=== PATIENT | male | born 1945 | race Caucasian/White ===

== ENCOUNTER → 2017-06-21 | Outpatient (CLI) | payer MEDICARE, OTHER ==
[2017-06-21 11:25] LABS: ABSOLUTE EOSINOPHILS # (AUTO) 0.2 10^3/uL (0.0-0.6); ABSOLUTE LYMPHOCYTES (AUTO) 1.5 10^3/uL (0.5-4.7); ABSOLUTE MONOCYTES (AUTO) 0.6 10^3/uL (0.1-1.4); BASOPHILS % (AUTO) 0.5 % (0-2); EOSINOPHILS % (AUTO) 1.8 % (0-6); HEMATOCRIT 41.8 % (37.9-51.0); HEMOGLOBIN 14.8 g/dL (13.5-17.0); HGB HCT DIFFERENCE 2.6; LYMPHOCYTES % (AUTO) 16.6 % (13-45); MEAN CORPUSCULAR HEMOGLOBIN 31.4 pg (27.0-33.4); MEAN CORPUSCULAR HGB CONC 35.3 g/dL (32.0-36.0); MEAN CORPUSCULAR VOLUME 89 fl (80-97); MONOCYTES % (AUTO) 6.1 % (3-13); RED CELL DISTRIBUTION WIDTH 13.5 % (11.5-14.0); WHITE BLOOD COUNT 9.3 10^3/uL (4.0-10.5)
[2017-06-21 11:47] LABS: ALANINE AMINOTRANSFERASE 23 U/L (21-72); ALBUMIN 4.5 g/dL (3.5-5.0); ALKALINE PHOSPHATASE 94 U/L (38-126); ANION GAP 12 (5-19); ASPARTATE AMINO TRANSFERASE 17 U/L (17-59); BILIRUBIN,DIRECT 0.4 mg/dL (0.0-0.4); BILIRUBIN,TOTAL 0.9 mg/dL (0.2-1.3); BLOOD UREA NITROGEN 21 mg/dL (7-20); CALCIUM 9.8 mg/dL (8.4-10.2); CARBON DIOXIDE 23 mmol/L (22-30); CHLORIDE 109 mmol/L (98-107); CHOLESTEROL 159.12 mg/dL (0-200); CREATININE RESULT 1.13 mg/dL (0.52-1.25); Direct HDL 45 mg/dL (>40); GLUCOSE 98 mg/dL (75-110); POTASSIUM 4.2 mmol/L (3.6-5.0); SODIUM 144.1 mmol/L (137-145); TOTAL PROTEIN 7.4 g/dL (6.3-8.2); TRIGLYCERIDES 186 mg/dL (<150)
[2017-06-21 11:58] LABS: DIRECT LDL 74 mg/dL (<100)
[2017-06-21 12:02] LABS: VLDL CHOLESTEROL 37.2 mg/dL (10-31)
== END ==
LOC: OD 10:15
PROVIDERS: ATTEND Psychiatry & Neurology Psychiatry
DX: F20.89 Other schizophrenia (principal); F33.1 Major depressive disorder, recurrent, moderate; Z68.32 Body mass index [BMI] 32.0-32.9, adult; Z79.899 Other long term (current) drug therapy
CPT/HCPCS: 36415; 80053; 80061; 84443; 85025

== ENCOUNTER 2018-08-06 11:14 | Emergency (ER) | payer MEDICARE ==
[2018-08-06] MEDS ORDERED: NORMAL SALINE 1000 ML 1,000 ML IV ONE (11:37)
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
[2018-08-06 12:02] LABS: ABSOLUTE BASOPHILS # (AUTO) 0.1 10^3/uL (0.0-0.2); ABSOLUTE EOSINOPHILS # (AUTO) 0.2 10^3/uL (0.0-0.6); ABSOLUTE LYMPHOCYTES (AUTO) 1.7 10^3/uL (0.5-4.7); ABSOLUTE MONOCYTES (AUTO) 1.1 10^3/uL (0.1-1.4); ABSOLUTE NEUT (AUTO) 10.1 10^3/uL (1.7-8.2); BASOPHILS % (AUTO) 0.6 % (0-2); EOSINOPHILS % (AUTO) 1.5 % (0-6); HEMATOCRIT 45.9 % (37.9-51.0); HEMOGLOBIN 16.2 g/dL (13.5-17.0); LYMPHOCYTES % (AUTO) 12.6 % (13-45); MEAN CORPUSCULAR HEMOGLOBIN 30.9 pg (27.0-33.4); MEAN CORPUSCULAR HGB CONC 35.3 g/dL (32.0-36.0); MEAN CORPUSCULAR VOLUME 88 fl (80-97); MONOCYTES % (AUTO) 8.2 % (3-13); PLATELET COUNT 200 10^3/uL (150-450); RED BLOOD COUNT 5.24 10^6/uL (4.35-5.55); RED CELL DISTRIBUTION WIDTH 13.5 % (11.5-14.0); SEGMENTED NEUTROPHILS % (AUTO) 77.1 % (42-78); TOTAL CELLS COUNTED % (AUTO) 100 %; WHITE BLOOD COUNT 13.1 10^3/uL (4.0-10.5)
--- NOTE | 2018-08-06 12:11 | RADIOLOGY REPORT (SQ) ---
EXAM DESCRIPTION: CHEST SINGLE VIEW COMPLETED DATE/TIME: 08/06/2018 12:00 pm REASON FOR STUDY: cough COMPARISON: None. EXAM PARAMETERS: NUMBER OF VIEWS: One view. TECHNIQUE: Single frontal radiographic view of the chest acquired. RADIATION DOSE: NA LIMITATIONS: None. FINDINGS: LUNGS AND PLEURA: No opacities, masses or pneumothorax. No pleural effusion. MEDIASTINUM AND HILAR STRUCTURES: No masses. Contour normal. HEART AND VASCULAR STRUCTURES: Heart normal in size. Normal vasculature. BONES: No acute findings. HARDWARE: None in the chest. OTHER: No other significant finding. IMPRESSION: NO ACUTE RADIOGRAPHIC FINDING IN THE CHEST. TECHNICAL DOCUMENTATION: JOB ID: [id number] [employer]- All Rights Reserved Reading location - IP/workstation name: [email or web address]
[2018-08-06 12:25] LABS: ANION GAP 15 (5-19); BLOOD UREA NITROGEN 23 mg/dL (7-20); CALCIUM 9.9 mg/dL (8.4-10.2); CARBON DIOXIDE 24 mmol/L (22-30); CHLORIDE 95 mmol/L (98-107); GLUCOSE 122 mg/dL (75-110); POTASSIUM 3.9 mmol/L (3.6-5.0); SODIUM 133.7 mmol/L (137-145)
[2018-08-06 14:56] LABS: APPEARANCE,URINE CLEAR; BILIRUBIN,URINE NEGATIVE (NEGATIVE); COLOR,URINE YELLOW; GLUCOSE, URINE NEGATIVE (NEGATIVE); KETONES,URINE NEGATIVE (NEGATIVE); LEUKOCYTE ESTERASE,URINE NEGATIVE (NEGATIVE); NITRITE,URINE NEGATIVE (NEGATIVE); PROTEIN,URINE NEGATIVE (NEGATIVE); URINE SPECIFIC GRAVITY 1.011; UROBILINOGEN,URINE NEGATIVE mg/dL (<2.0)
[2018-08-06 15:28] VITALS: BP 119/81
--- NOTE | 2018-08-06 17:03 | EKG REPORT ---
SEVERITY:- BORDERLINE ECG - SINUS RHYTHM PROBABLE LEFT ATRIAL ABNORMALITY : Confirmed by: Yola Dutton MD 06-Aug-2018 17:01:48
== END 2018-08-06 16:12 | disposition home or self-care (01) ==
LOC: ER 11:14
DX: E86.0 Dehydration (principal); N17.9 Acute kidney failure, unspecified; R31.21 Asymptomatic microscopic hematuria; R19.7 Diarrhea, unspecified; R53.1 Weakness; R53.83 Other fatigue; I10 Essential (primary) hypertension; Z88.8 Allergy status to other drugs, medicaments and biological substances
CPT/HCPCS: 36415; 71045; 80048; 81001; 84484; 85025; 93005; 93010; 96360; 99285

== ENCOUNTER 2018-08-29 06:20 | Emergency (ER) | payer MEDICARE ==
[2018-08-29] MEDS ORDERED: RINGERS SOLUTION,LACTATED 1,000 ML IV ONE (06:36)
--- NOTE | 2018-08-29 06:43 | ER Document Report ---
ED General - General Chief Complaint: Dizziness Stated Complaint: DIZZINESS Time Seen by Provider: 08/29/18 06:22 TRAVEL OUTSIDE OF THE [place] IN LAST 30 DAYS: No COUNTRY TRAVELED TO/FROM: [facility] Patient complains to provider of: dizziness Onset: Other - 73-year-old man that presents for evaluation of dizziness, he has had a similar episode like this in the past 3 weeks prior he is uncertain what the cause was at that time, his tenant who is here with him notes that he believes they were treated for dehydration at that time but that Mr. Rodriguez does have an element of dementia so he is uncertain. He noted that he was unsteady on his feet this morning, and he has been feeling this way for the last 2 days particularly when he gets up out of bed. Nothing is seem to make his symptoms better, change in position seems to make them worse. He denies any history of heart attacks in the past, arrhythmia, stroke, recent illnesses or infections. He denies palpitations, chest pain, shortness of breath, abdominal pain, rashes, diarrhea, constipation, dysuria. - Related Data Allergies/Adverse Reactions: haloperidol [From Haldol] Allergy (Verified 08/29/18 07:05) haloperidol lactate [From Haldol] Allergy (Verified 08/29/18 07:05) Past Medical History - General Information source: Patient, Relative Cannot obtain history due to: Dementia - Social History Smoking Status: Former Smoker Family History: Reviewed & Not Pertinent Renal/ Medical History: Denies: Hx Peritoneal Dialysis - Immunizations Hx Diphtheria, Pertussis, Tetanus Vaccination: No Review of Systems - Review of Systems -: Yes All other systems reviewed and negative Physical Exam - Vital signs Vitals: Pulse Resp BP Pulse Ox 74 18 96/68 L 94 08/29/18 06:20 08/29/18 06:20 08/29/18 06:20 08/29/18 06:20 Interpretation: Normal - General General appearance: Appears well In distress: None - HEENT Head: Normocephalic Eyes: Normal Conjunctiva: Normal Cornea: Normal Extraocular movements intact: Yes Eyelashes: Normal Pupils: PERRL - Respiratory Respiratory status: No respiratory distress Chest status: Nontender Breath sounds: Normal Chest palpation: Normal - Cardiovascular Rhythm: Regular Heart sounds: Normal auscultation Murmur: No - Abdominal Inspection: Normal Distension: No distension Tenderness: Nontender - Back Back: Normal - Extremities General upper extremity: Normal inspection, Nontender, Normal ROM, Normal strength General lower extremity: Normal inspection, Nontender, Normal ROM, Normal strength - Neurological Neuro grossly intact: Yes Cognition: Normal Orientation: AAOx4 [place] Coma Scale Eye Opening: Spontaneous [place] Coma Scale Verbal: Oriented [place] Coma Scale Motor: Obeys Commands [place] Coma Scale Total: 15 Speech: Normal Cranial nerves: Normal Motor strength normal: LUE, RUE, LLE, RLE - Psychological Associated symptoms: Normal affect Course - Re-evaluation Re-evalutation: 08/29/18 06:48 There is a 73-year-old man who presents with dizziness. It does sound postural in nature, previously was treated for what sounds like likely dehydration. His lips are cracked though he is not tachycardic at this time his blood pressure is somewhat lower than expected. He has low level dementia as well as a history of some mental illness and as such his recall is somewhat limited. Will initiate broad workup including labs, EKG, cardiac monitoring, CT of the head. Will administer liter bolus, will plan for reassessment. 08/29/18 08:[address] is unremarkable chest x-ray is unchanged. EKG is essentially the same with a modestly longer QTC. Patient's chemistry does demonstrate what appears to be a recurrent acute kidney injury. He does demonstrate some symptoms suggestive of a prerenal azotemia with an elevated BUN and creatinine. Patient is likely dehydrated. Will plan for a second troponin as his initial is negative and reassessment. 08/29/18 12:34 Second troponin is negative, patient's in-home friend Mohamud Sanchez at phone number [phone] should serve as their point of contacted to help arrange for home health visit. Have placed a consult to social work for home health visit. Believe these people would benefit from assistance at home as it is likely they are incorrectly taking her medicines. Patient is well-appearing at this time is remained neurologically intact throughout his time in the emergency department without any events on monitor. Will plan for him to be discharged with return precautions with his as well as family friend. - Vital Signs Vital signs: Temp Pulse Resp BP Pulse Ox 97.9 F 74 14 119/83 92 08/29/18 06:35 08/29/18 06:20 08/29/18 12:30 08/29/18 12:30 08/29/18 12:30 - Laboratory Result Diagrams: 08/29/18 06:27 08/29/18 06:27 Laboratory results interpreted by me: 08/29/18 08/29/18 08/29/18 06:27 06:27 10:50 WBC 13.5 H Abs Neuts (Manual) 9.5 H Sodium 131.9 L Potassium 3.3 L Chloride 95 L Carbon Dioxide 20 L BUN 32 H Creatinine 1.60 H Est GFR ( Amer) 52 L Est GFR (Non-Af Amer) 43 L Glucose 130 H Urine Blood SMALL H Ur Leukocyte Esterase SMALL H - EKG Interpretation by Me EKG shows normal: Sinus rhythm - Sinus rhythm, normal axis, QTC modestly lengthened now greater than 500 in comparison to 08/06/2018 Discharge - Discharge Clinical Impression: Dizziness, Weakness, Confusion Dementia Qualifiers: Dementia type: unspecified type Dementia behavioral disturbance: without behavioral disturbance Qualified Code(s): F03.90 - Unspecified dementia without behavioral disturbance Condition: Good Disposition: HOME, SELF-CARE Instructions: Dizziness ([facility]) Additional Instructions: You were seen today in the emergency department for your dizziness. You had an evaluation including blood tests, a CAT scan of your head, and x-ray of your chest. Take your time when you are getting up. Make sure you are drinking plenty of water over the next few days. You should get a call in the next 2-3 days to set up a home health visit. If you do not receive this call call the emergency department and asked to speak to the social media marketing manager. Referrals: KEYLA WHITE MD [Primary Care Provider] - Follow up as needed
[2018-08-29 06:50] LABS: HEMATOCRIT 46.7 % (37.9-51.0); HEMOGLOBIN 16.7 g/dL (13.5-17.0); MEAN CORPUSCULAR HEMOGLOBIN 30.8 pg (27.0-33.4); MEAN CORPUSCULAR HGB CONC 35.7 g/dL (32.0-36.0); MEAN CORPUSCULAR VOLUME 86 fl (80-97); PLATELET COUNT 302 10^3/uL (150-450); RED BLOOD COUNT 5.41 10^6/uL (4.35-5.55); RED CELL DISTRIBUTION WIDTH 13.8 % (11.5-14.0); WHITE BLOOD COUNT 13.5 10^3/uL (4.0-10.5)
[2018-08-29 06:59] LABS: ALANINE AMINOTRANSFERASE 45 U/L (21-72); ALBUMIN 4.3 g/dL (3.5-5.0); ALKALINE PHOSPHATASE 91 U/L (38-126); ANION GAP 17 (5-19); ASPARTATE AMINO TRANSFERASE 29 U/L (17-59); BILIRUBIN,DIRECT 0.3 mg/dL (0.0-0.4); BILIRUBIN,TOTAL 1.1 mg/dL (0.2-1.3); BLOOD UREA NITROGEN 32 mg/dL (7-20); CARBON DIOXIDE 20 mmol/L (22-30); CHLORIDE 95 mmol/L (98-107); CREATINE KINASE 64 U/L (55-170); GLUCOSE 130 mg/dL (75-110); POTASSIUM 3.3 mmol/L (3.6-5.0); SODIUM 131.9 mmol/L (137-145); TOTAL PROTEIN 7.6 g/dL (6.3-8.2)
[2018-08-29 07:11] LABS: CREATINE KINASE MB 1.03 ng/mL (<4.55)
[2018-08-29 07:14] LABS: ABSOLUTE MONOCYTES # (MANUAL) 0.9 10^3/uL (0.1-1.4); ABSOLUTE NEUTROPHILS# (MANUAL) 9.5 10^3/uL (1.7-8.2); BASOPHILS % (MANUAL) 0 % (0-2); EOSINOPHILS % (MANUAL) 1 % (0-6); LYMPHOCYTES % (MANUAL) 22 % (13-45); MONOCYTES % (MANUAL) 7 % (3-13); SEGMENTED NEUTROPHILS % (MAN) 70 % (42-78); TOTAL CELLS COUNTED 100; TROPONIN I < 0.012 ng/mL
[2018-08-29 07:15] LABS: PLATELET COMMENT ADEQUATE; TOXIC GRANULATION SLIGHT
--- NOTE | 2018-08-29 07:30 | RADIOLOGY REPORT (SQ) ---
EXAM DESCRIPTION: CT HEAD WITHOUT COMPLETED DATE/TIME: 08/29/2018 7:20 am REASON FOR STUDY: dizziness x 3 days COMPARISON: None. TECHNIQUE: Axial images acquired through the brain without intravenous contrast. Images reviewed wi th bone, brain and subdural windows. Additional sagittal and coronal reconstructions were generated. Images stored on PACS. All CT scanners at this facility use dose modulation, iterative reconstruction, and/or weight based d osing when appropriate to reduce radiation dose to as low as reasonably achievable (ALARA). [facility]: Dose Right [facility]: CareDose [facility]: Dose Right [facility]: Teradose 4D [facility]: Smart [employer] RADIATION DOSE: CT Rad equipment meets quality standard of care and radiation dose reduction techniq ues were employed. CTDIvol: 53.2 - 55.2 mGy. DLP: 2290 mGy-cm. mGy. LIMITATIONS: Patient scanned twice, motion artifact FINDINGS: VENTRICLES: Normal size and contour. CEREBRUM: No masses. No hemorrhage. No midline shift. No evidence for acute infarction. Normal gra y/white matter differentiation. No areas of low density in the white matter. CEREBELLUM: No masses. No hemorrhage. No alteration of density. No evidence for acute infarction. EXTRAAXIAL SPACES: No fluid collections. No masses. ORBITS AND GLOBE: No intra- or extraconal masses. Normal contour of globe without masses. CALVARIUM: No fracture. PARANASAL SINUSES: No fluid or mucosal thickening. SOFT TISSUES: No mass or hematoma. OTHER: No other significant finding. IMPRESSION: NORMAL BRAIN CT WITHOUT CONTRAST. EVIDENCE OF ACUTE STROKE: NO. COMMENT: Quality ID # 436: Final reports with documentation of one or more dose reduction techniques (e.g., Automated exposure control, adjustment of the mA and/or kV according to patient size, use of iterative reconstruction technique) TECHNICAL DOCUMENTATION: JOB ID: [id number] [employer]- All Rights Reserved Reading location - IP/workstation name: [email or web address]
--- NOTE | 2018-08-29 07:39 | RADIOLOGY REPORT (SQ) ---
EXAM DESCRIPTION: CHEST SINGLE VIEW COMPLETED DATE/TIME: 08/29/2018 7:30 am REASON FOR STUDY: lightheadedness COMPARISON: AP chest 08/06/2018, 08/28/2011 EXAM PARAMETERS: NUMBER OF VIEWS: One view. TECHNIQUE: Single frontal radiographic view of the chest acquired. RADIATION DOSE: NA LIMITATIONS: None. FINDINGS: LUNGS AND PLEURA: No opacities, masses or pneumothorax. No pleural effusion. MEDIASTINUM AND HILAR STRUCTURES: No masses. Contour normal. HEART AND VASCULAR STRUCTURES: Heart normal in size. Normal vasculature. BONES: No acute findings. HARDWARE: None in the chest. OTHER: No other significant finding. IMPRESSION: NO ACUTE RADIOGRAPHIC FINDING IN THE CHEST. TECHNICAL DOCUMENTATION: JOB ID: [id number] [employer]- All Rights Reserved Reading location - IP/workstation name: [email or web address]
--- NOTE | 2018-08-29 07:49 | EKG REPORT ---
SEVERITY:- ABNORMAL ECG - SINUS RHYTHM BORDERLINE INFERIOR Q WAVES PROLONGED QT INTERVAL : Confirmed by: Hawk Puente MD 29-Aug-2018 07:48:42
[2018-08-29] MEDS ORDERED: POTASSIUM CHLORIDE 20 MEQ/15 ML UDCUP PO ONE (08:41)
[2018-08-29 11:11] LABS: APPEARANCE,URINE SLIGHTLY-CLOUDY; BILIRUBIN,URINE NEGATIVE (NEGATIVE); COLOR,URINE YELLOW; GLUCOSE, URINE NEGATIVE (NEGATIVE); KETONES,URINE NEGATIVE (NEGATIVE); LEUKOCYTE ESTERASE,URINE SMALL (NEGATIVE); NITRITE,URINE NEGATIVE (NEGATIVE); PROTEIN,URINE NEGATIVE (NEGATIVE); URINE SPECIFIC GRAVITY 1.011; UROBILINOGEN,URINE NEGATIVE mg/dL (<2.0)
[2018-08-29 11:27] LABS: URINE AMPHETAMINES SCREEN NEGATIVE; URINE BARBITURATES SCREEN NEGATIVE; URINE BENZODIAZEPINES SCREEN NEGATIVE; URINE COCAINE SCREEN NEGATIVE; URINE MARIJUANA (THC) SCREEN NEGATIVE; URINE METHADONE SCREEN NEGATIVE; URINE PHENCYCLIDINE SCREEN NEGATIVE
[2018-08-29 12:37] VITALS: BP 119/83
== END 2018-08-29 12:47 | disposition home or self-care (01) ==
LOC: ER 06:20
DX: R42 Dizziness and giddiness (principal); R53.1 Weakness; R41.0 Disorientation, unspecified; F03.90 Unspecified dementia, unspecified severity, without behavioral disturbance, psychotic disturbance, mood disturbance, and anxiety
CPT/HCPCS: 93005; 99285; 96360; 36415; 82553; 82550; 83735; 85025; 80053; 81001; 84484; 80307; 71045; 70450; 93010; A9270; J7120

== ENCOUNTER → 2018-09-19 | Outpatient (CLI) | payer MEDICARE ==
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
--- NOTE | 2018-09-19 18:46 | RADIOLOGY REPORT (SQ) ---
EXAM DESCRIPTION: CT ABD/PELVIS NO ORAL OR IV COMPLETED DATE/TIME: 09/19/2018 11:02 am REASON FOR STUDY: UTI,ABNORMAL WEIGHT LOSS N39.0 URINARY TRACT INFECTION, SITE NOT SPECIFIED R63.4 ABNORMAL WEIGHT LOSS N18.2 CHRONIC KIDNEY DISEASE, STAGE 2 (MILD) COMPARISON: None. TECHNIQUE: CT scan of the abdomen and pelvis performed without intravenous or oral contrast. Images reviewed with lung, soft tissue, and bone windows. Reconstructed coronal and sagittal MPR images revi ewed. All images stored on PACS. All CT scanners at this facility use dose modulation, iterative reconstruction, and/or weight based d osing when appropriate to reduce radiation dose to as low as reasonably achievable (ALARA). [facility]: Dose Right [facility]: CareDose [facility]: Dose Right [facility]: Teradose 4D [facility]: Smart e27 RADIATION DOSE: CT Rad equipment meets quality standard of care and radiation dose reduction techniq ues were employed. CTDIvol: 15.4 mGy. DLP: 863 mGy-cm.mGy. LIMITATIONS: None. FINDINGS: LOWER CHEST: No significant findings. No nodules or infiltrates. NON-CONTRASTED LIVER, SPLEEN, ADRENALS: Evaluation limited by lack of IV contrast. No identified sign ificant masses. PANCREAS: No masses. No peripancreatic inflammatory changes. GALLBLADDER: 2.5 cm stone in the gallbladder without CT signs of acute cholecystitis. RIGHT KIDNEY AND URETER: No suspicious masses. Assessment limited by lack of IV contrast. No signif icant calcifications. No hydronephrosis or hydroureter. LEFT KIDNEY AND URETER: No suspicious masses. Assessment limited by lack of IV contrast. 12 cm left lower pole cortical cyst. 2 mm left upper pole intrarenal nonobstructive stone coronal image 70. N o hydronephrosis or hydroureter. AORTA AND RETROPERITONEUM: No aneurysm. No retroperitoneal masses or adenopathy. BOWEL AND PERITONEAL CAVITY: No obvious masses or inflammatory changes. No free fluid. No free intra peritoneal air. No bowel obstruction. 4 cm periampullary duodenum diverticulum. Small hiatal herni a. APPENDIX: Normal. PELVIS, BLADDER, AND ABDOMINAL WALL:No abnormal masses. No free fluid. Bladder normal. Fat containin g bilateral inguinal hernias. BONES: No significant findings. OTHER: No other significant finding. IMPRESSION: NO SIGNIFICANT OR ACUTE PROCESS IN THE ABDOMEN OR PELVIS. COMMENT: Quality ID # [id number]: Final reports with documentation of one or more dose reduction techniques (e.g., Automated exposure control, adjustment of the mA and/or kV according to patient size, use of iterative reconstruction technique) TECHNICAL DOCUMENTATION: JOB ID: [id number] [employer]- All Rights Reserved Reading location - IP/workstation name: [email or web address]
== END ==
LOC: RAD 10:47
PROVIDERS: ATTEND Family Medicine
DX: N39.0 Urinary tract infection, site not specified (principal); R63.4 Abnormal weight loss; N18.2 Chronic kidney disease, stage 2 (mild); F03.90 Unspecified dementia, unspecified severity, without behavioral disturbance, psychotic disturbance, mood disturbance, and anxiety
CPT/HCPCS: 70551; 74176

== ENCOUNTER 2019-05-18 14:16 | Inpatient (IN) | payer MEDICARE ==
[2019-05-18] MEDS ORDERED: NORMAL SALINE 1000 ML 1,000 ML IV ONE ×3 (14:36→18:44)
[2019-05-18 14:59] LABS: VENOUS BLOOD BASE EXCESS 7.1 mmol/L; VENOUS BLOOD HCO3 29.9 mmol/L (20-32); VENOUS BLOOD PCO2 36.5 mmHg (35-63); VENOUS BLOOD PH 7.53 (7.30-7.42)
--- NOTE | 2019-05-18 14:59 | ER Document Report ---
ED General - General Chief Complaint: Fainting Stated Complaint: WEAKNESS Time Seen by Provider: 05/18/19 14:25 Mode of Arrival: Ambulatory Information source: Patient, Relative, Emergency Med Personnel, [facility] Records Notes: 73-year-old male with hypertension, hyperlipidemia, schizophrenia presents via EMS after a near syncopal episode at [facility]. Per the patient's the patient fell 3 times today. She cannot tell me whether he struck his head but states that he did not lose consciousness. Patient currently only complaining of weakness and when asked where he cannot specify. He denies any headache, visual changes, nausea, vomiting, chest pain, shortness of breath, abdominal pain, r ecent illness. states that the patient has been complaining of weakness and has had decreased appetite over the last 3 days. Patient has not eaten anything today. TRAVEL OUTSIDE OF THE [place] IN LAST 30 DAYS: No COUNTRY TRAVELED TO/FROM: [facility] [place] [employer] Onset: Just prior to arrival Onset/Duration: Sudden Quality of pain: No pain Severity: None Pain Level: Denies Associated symptoms: Sweating, Weakness. denies: Chest pain, Productive cough, Diarrhea, Fever, Headache, Nausea, Vomiting, Shortness of breath Exacerbated by: Denies Relieved by: Denies Similar symptoms previously: No Recently seen / treated by doctor: No - Related Data Allergies/Adverse Reactions: haloperidol [From Haldol] Allergy (Verified 09/10/18 17:55) haloperidol lactate [From Haldol] Allergy (Verified 09/10/18 17:55) Past Medical History - General Information source: Patient, Relative, Emergency Med Personnel - Social History Smoking Status: Never Smoker Chew tobacco use (# tins/day): No Frequency of alcohol use: None Drug Abuse: None Lives with: Spouse/Significant other Family History: Reviewed & Not Pertinent Patient has suicidal ideation: No Patient has homicidal ideation: No - Past Medical History Cardiac Medical History: Reports: Hx Hypercholesterolemia, Hx Hypertension Renal/ Medical History: Denies: Hx Peritoneal Dialysis - Immunizations Hx Diphtheria, Pertussis, Tetanus Vaccination: No Review of Systems - Review of Systems Notes: REVIEW OF SYSTEMS: CONSTITUTIONAL : Denies fever, chills, or sweats. Denies recent illness. Denies weight loss, recent hospitalizations. EENT: Denies visual changes, eye pain. Denies sore throat, oral lesions, difficulty swallowing. CARDIOVASCULAR: Denies chest pain. Denies palpitations. Denies lower extremity edema. RESPIRATORY: Denies cough. Denies shortness of breath, wheezing. GASTROINTESTINAL: Denies abdominal pain or distention. Denies nausea, vomiting, or diarrhea. Denies blood in vomitus, stools, or per rectum. Denies black, tarry stools. Denies constipation. GENITOURINARY: Denies difficulty urinating, painful urination, frequency, blood in urine, testicular pain or penile discharge. MUSCULOSKELETAL: Denies back or neck pain or stiffness. Denies joint pain or swelling. SKIN: Denies rash, lesions or sores. HEMATOLOGIC : Denies easy bruising or bleeding. LYMPHATIC: Denies swollen glands. NEUROLOGICAL: Denies confusion or altered mental status. Denies loss of consciousness. Denies dizziness or lightheadedness. Denies headache. Denies paralysis. Denies problems difficulty with ambulation, slurred speech. Denies sensory loss, numbness, or tingling. Denies seizures. PSYCHIATRIC: Denies anxiety or stress. Denies depression, suicidal ideation, or Physical Exam - Vital signs Vitals: Resp Pulse Ox 19 98 05/18/19 14:29 05/18/19 14:29 - Notes Notes: PHYSICAL EXAMINATION: GENERAL: Well-appearing, well-nourished and in no acute distress. HEAD: Atraumatic, normocephalic. EYES: Pupils equal round and reactive to light, extraocular movements intact, sclera anicteric, conjunctiva are normal. ENT: Nares patent, oropharynx clear without exudates. Moist mucous membranes. NECK: Normal range of motion, supple without lymphadenopathy LUNGS: Visibly dyspneic breath sounds clear to auscultation bilaterally and equal. No wheezes rales or rhonchi. HEART: Regular rate and rhythm without murmurs ABDOMEN: Soft, nontender, nondistended abdomen. No guarding, no rebound. No masses appreciated. Musculoskeletal: Normal range of motion, no pitting or edema. No cyanosis. NEUROLOGICAL: Cranial nerves grossly intact. Slowed speech, normal gait. Normal sensory, motor exams. NIH 0 PSYCH: Flat affect SKIN: Warm, Dry, normal turgor, no rashes or lesions noted. Course - Re-evaluation Re-evalutation: 05/18/19 21:20 Laboratory 05/18/19 05/18/19 05/18/19 14:41 14:41 14:41 WBC 17.6 H RBC 5.35 Hgb 16.4 Hct 46.7 MCV 87 MCH 30.7 MCHC 35.2 RDW 12.9 Plt Count 307 Seg Neutrophils % 87.0 H Lymphocytes % 5.8 L Monocytes % 6.7 Eosinophils % 0.2 Basophils % 0.3 Absolute Neutrophils 15.3 H Absolute Lymphocytes 1.0 Absolute Monocytes 1.2 Absolute Eosinophils 0.0 Absolute Basophils 0.1 PT 13.7 INR 1.05 D-Dimer 1.02 H VBG pH VBG pCO2 VBG HCO3 VBG Base Excess Sodium 124.7 L Potassium 3.3 L Chloride 81 L Carbon Dioxide 29 Anion Gap 15 BUN 47 H Creatinine 1.73 H Est GFR ( Amer) 47 L Est GFR (Non-Af Amer) 39 L Glucose 142 H Lactic Acid Calcium 9.5 Total Bilirubin 1.0 Direct Bilirubin 0.4 Neonat Total Bilirubin Not Reportable Neonat Direct Bilirubin Not Reportable Neonat Indirect Bili Not Reportable AST 24 ALT 27 Alkaline Phosphatase 90 Creatine Kinase 36 L CK-MB (CK-2) Troponin I NT-Pro-B Natriuret Pep Total Protein 7.0 Albumin 4.0 Urine Color Urine Appearance Urine pH Ur Specific [place] Urine Protein Urine Glucose (UA) Urine Ketones Urine Blood Urine Nitrite Urine Bilirubin Urine Urobilinogen Ur Leukocyte Esterase Urine WBC (Auto) Urine RBC (Auto) U Hyaline Cast (Auto) Urine Bacteria (Auto) Urine Mucus (Auto) Urine Ascorbic Acid Urine Opiates Screen Urine Methadone Screen Ur Barbiturates Screen Ur Phencyclidine Scrn Ur Amphetamines Screen U Benzodiazepines Scrn Urine Cocaine Screen U Marijuana (THC) Screen 05/18/19 05/18/19 05/18/19 14:41 14:41 14:56 WBC RBC Hgb Hct MCV MCH MCHC RDW Plt Count Seg Neutrophils % Lymphocytes % Monocytes % Eosinophils % Basophils % Absolute Neutrophils Absolute Lymphocytes Absolute Monocytes Absolute Eosinophils Absolute Basophils PT INR D-Dimer VBG pH 7.53 H VBG pCO2 36.5 VBG HCO3 29.9 VBG Base Excess 7.1 Sodium Potassium Chloride Carbon Dioxide Anion Gap BUN Creatinine Est GFR ( Amer) Est GFR (Non-Af Amer) Glucose Lactic Acid 3.5 H Calcium Total Bilirubin Direct Bilirubin Neonat Total Bilirubin Neonat Direct Bilirubin Neonat Indirect Bili AST ALT Alkaline Phosphatase Creatine Kinase CK-MB (CK-2) 0.22 Troponin I < 0.012 NT-Pro-B Natriuret Pep 328 Total Protein Albumin Urine Color Urine Appearance Urine pH Ur Specific [place] Urine Protein Urine Glucose (UA) Urine Ketones Urine Blood Urine Nitrite Urine Bilirubin Urine Urobilinogen Ur Leukocyte Esterase Urine WBC (Auto) Urine RBC (Auto) U Hyaline Cast (Auto) Urine Bacteria (Auto) Urine Mucus (Auto) Urine Ascorbic Acid Urine Opiates Screen Urine Methadone Screen Ur Barbiturates Screen Ur Phencyclidine Scrn Ur Amphetamines Screen U Benzodiazepines Scrn Urine Cocaine Screen U Marijuana (THC) Screen 05/18/19 05/18/19 16:57 16:57 WBC RBC Hgb Hct MCV MCH MCHC RDW Plt Count Seg Neutrophils % Lymphocytes % Monocytes % Eosinophils % Basophils % Absolute Neutrophils Absolute Lymphocytes Absolute Monocytes Absolute Eosinophils Absolute Basophils PT INR D-Dimer VBG pH VBG pCO2 VBG HCO3 VBG Base Excess Sodium Potassium Chloride Carbon Dioxide Anion Gap BUN Creatinine Est GFR ( Amer) Est GFR (Non-Af Amer) Glucose Lactic Acid Calcium Total Bilirubin Direct Bilirubin Neonat Total Bilirubin Neonat Direct Bilirubin Neonat Indirect Bili AST ALT Alkaline Phosphatase Creatine Kinase CK-MB (CK-2) Troponin I NT-Pro-B Natriuret Pep Total Protein Albumin Urine Color YELLOW Urine Appearance CLEAR Urine pH 5.0 Ur Specific [place] 1.018 Urine Protein NEGATIVE Urine Glucose (UA) NEGATIVE Urine Ketones NEGATIVE Urine Blood SMALL H Urine Nitrite NEGATIVE Urine Bilirubin NEGATIVE Urine Urobilinogen 2.0 H Ur Leukocyte Esterase NEGATIVE Urine WBC (Auto) 2 Urine RBC (Auto) 1 U Hyaline Cast (Auto) 4 Urine Bacteria (Auto) TRACE Urine Mucus (Auto) RARE Urine Ascorbic Acid NEGATIVE Urine Opiates Screen NEGATIVE Urine Methadone Screen NEGATIVE Ur Barbiturates Screen NEGATIVE Ur Phencyclidine Scrn NEGATIVE Ur Amphetamines Screen NEGATIVE U Benzodiazepines Scrn NEGATIVE Urine Cocaine Screen NEGATIVE U Marijuana (THC) Screen NEGATIVE Chest X-Ray 05/18/19 14:36 IMPRESSION: NO ACUTE FINDINGS. Head CT 05/18/19 14:38 IMPRESSION: NO ACUTE INTRACRANIAL FINDINGS. EVIDENCE OF ACUTE STROKE: NO. Chest/Abdomen CTA 05/18/19 15:19 IMPRESSION: NO PULMONARY EMBOLISM. IRREGULAR LEFT HILAR MASS MEASURING AT LEAST 4.3 CM, WHICH COURSES ALONG AND NARROWS THE INFERIOR MARGIN OF THE LEFT PULMONARY ARTERY, AND CORRESPONDING LINGULAR AND LEFT BASILAR BRANCH ARTERIES. Temp Pulse Resp BP Pulse Ox 97.5 F 13 97/68 L 100 05/18/19 15:33 05/18/19 18:01 05/18/19 18:00 05/18/19 18:01 05/18/19 21:20 73-year-old male with hypertension, hyperlipidemia, schizophrenia presents via EMS after a near syncopal episode at [facility]. Per the patient's the patient fell 3 times today. She cannot tell me whether he struck his head but states that he did not lose consciousness. Patient currently only complaining of weakness and when asked where he cannot specify. He denies any headache, visual changes, nausea, vomiting, chest pain, shortness of breath, abdominal pain, recent illness. Vitals reviewed upon arrival and patient is tachycardic, hypotensive. Patient appears ill but not toxic. He does appear mildly dehydrated. He is alert and oriented x4 but has slowed speech. CBC did show a leukocytosis of 17. CMP did show a hyponatremia with a sodium of 124, and a mild DULCE MARIA. Because of the patient's visible dyspnea and tachycardia a d-dimer was obtained and elevated. CTA was performed and showed no evidence of pulmonary embolism but did show a 4.3 cm hilar mass which the patient was not aware of. Patient did seem to improve after receiving fluids and does appear to be more alert and awake. He still complaining of general malaise. He has remained stable throughout his ED course. I did speak to Dr. Larsen covering for Dr. Gonzalez the patient's primary care physician who has agreed to accept the patient to the [facility]. - Vital Signs Vital signs: Temp Pulse Resp BP Pulse Ox 97.5 F 13 97/68 L 100 05/18/19 15:33 05/18/19 18:01 05/18/19 18:00 05/18/19 18:01 - Laboratory Result Diagrams: 05/18/19 14:41 05/18/19 14:41 Laboratory results interpreted by me: 05/18/19 05/18/19 05/18/19 14:41 14:41 14:41 WBC 17.6 H Seg Neutrophils % 87.0 H Lymphocytes % 5.8 L Absolute Neutrophils 15.3 H D-Dimer 1.02 H VBG pH Sodium 124.7 L Potassium 3.3 L Chloride 81 L BUN 47 H Creatinine 1.73 H Est GFR ( Amer) 47 L Est GFR (Non-Af Amer) 39 L Glucose 142 H Lactic Acid Creatine Kinase 36 L Urine Blood Urine Urobilinogen 05/18/19 05/18/19 05/18/19 14:41 14:56 16:57 WBC Seg Neutrophils % Lymphocytes % Absolute Neutrophils D-Dimer VBG pH 7.53 H Sodium Potassium Chloride BUN Creatinine Est GFR ( Amer) Est GFR (Non-Af Amer) Glucose Lactic Acid 3.5 H Creatine Kinase Urine Blood SMALL H Urine Urobilinogen 2.0 H - Diagnostic Test Radiology reviewed: Image reviewed, Reports reviewed - EKG Interpretation by Me Rate: Tachycardia [place]/QRS: Right axis deviation When compared to previous EKG there are: Previous EKG unavailable Critical Care Note - Critical Care Note Total time excluding time spent on procedures (mins): 40 - Minutes of critical care time spent in direct contact evaluating and reevaluating the patient, treating symptoms, reviewing labs and studies and speaking with family and consultants excluding any procedures Discharge - Discharge Clinical Impression: Hyponatremia, Elevated lactic acid level, Lung mass, Weakness, Acute kidney injury, Near syncope Altered mental status Qualifiers: Altered mental status type: unspecified Qualified Code(s): R41.82 - Altered mental status, unspecified Leukocytosis Qualifiers: Leukocytosis type: unspecified Qualified Code(s): D72.829 - Elevated white blood cell count, unspecified Hypotension Qualifiers: Hypotension type: unspecified hypotension type Qualified Code(s): I95.9 - Hypotension, unspecified Condition: Fair Disposition: ADMITTED INPATIENT Admitting Provider: [facility] Unit Admitted: [facility]
[2019-05-18 15:00] LABS: ABSOLUTE BASOPHILS # (AUTO) 0.1 10^3/uL (0.0-0.2); ABSOLUTE MONOCYTES (AUTO) 1.2 10^3/uL (0.1-1.4); ABSOLUTE NEUT (AUTO) 15.3 10^3/uL (1.7-8.2); BASOPHILS % (AUTO) 0.3 % (0-2); EOSINOPHILS % (AUTO) 0.2 % (0-6); HEMATOCRIT 46.7 % (37.9-51.0); HEMOGLOBIN 16.4 g/dL (13.5-17.0); LYMPHOCYTES % (AUTO) 5.8 % (13-45); MEAN CORPUSCULAR HEMOGLOBIN 30.7 pg (27.0-33.4); MEAN CORPUSCULAR HGB CONC 35.2 g/dL (32.0-36.0); MEAN CORPUSCULAR VOLUME 87 fl (80-97); MONOCYTES % (AUTO) 6.7 % (3-13); PLATELET COUNT 307 10^3/uL (150-450); RED BLOOD COUNT 5.35 10^6/uL (4.35-5.55); RED CELL DISTRIBUTION WIDTH 12.9 % (11.5-14.0); TOTAL CELLS COUNTED % (AUTO) 100 %; WHITE BLOOD COUNT 17.6 10^3/uL (4.0-10.5)
[2019-05-18 15:10] LABS: INTERNATIONAL RATION (INR) 1.05; PROTHROMBIN TIME 13.7 SEC (11.4-15.4)
[2019-05-18 15:12] LABS: D-DIMER 1.02 ug/mL (0.00-0.50)
[2019-05-18 15:22] LABS: ALANINE AMINOTRANSFERASE 27 U/L (21-72); ALKALINE PHOSPHATASE 90 U/L (38-126); ANION GAP 15 (5-19); ASPARTATE AMINO TRANSFERASE 24 U/L (17-59); BILIRUBIN,DIRECT 0.4 mg/dL (0.0-0.4); BLOOD UREA NITROGEN 47 mg/dL (7-20); CALCIUM 9.5 mg/dL (8.4-10.2); CARBON DIOXIDE 29 mmol/L (22-30); CHLORIDE 81 mmol/L (98-107); CREATINE KINASE 36 U/L (55-170); GLUCOSE 142 mg/dL (75-110); POTASSIUM 3.3 mmol/L (3.6-5.0); SODIUM 124.7 mmol/L (137-145)
[2019-05-18] MEDS ORDERED: CEFTRIAXONE 1 GM/D5W RTU 1 GM/50 ML RTUPB IV ONE (15:31)
[2019-05-18 15:34] LABS: CREATINE KINASE MB 0.22 ng/mL (<4.55); NT PRO BNP 328 pg/mL (5-900); TROPONIN I < 0.012 ng/mL
--- NOTE | 2019-05-18 15:46 | RADIOLOGY REPORT (SQ) ---
EXAM DESCRIPTION: CHEST SINGLE VIEW COMPLETED DATE/TIME: 05/18/2019 3:23 pm REASON FOR STUDY: dyspnea COMPARISON: 09/10/2018 TECHNIQUE: Single frontal radiographic view of the chest acquired. NUMBER OF VIEWS: One view. LIMITATIONS: None. FINDINGS: LUNGS AND PLEURA: No pneumothorax. No consolidation or pleural effusion. MEDIASTINUM AND HILAR STRUCTURES: Stable. HEART AND VASCULAR STRUCTURES: Stable. BONES: No acute findings. HARDWARE: None in the chest. OTHER: No other significant finding. IMPRESSION: NO ACUTE FINDINGS. TECHNICAL DOCUMENTATION: JOB ID: [id number] [place]-72 2010 [employer]- All Rights Reserved Reading location - IP/workstation name: [email or web address]
--- NOTE | 2019-05-18 15:48 | RADIOLOGY REPORT (SQ) ---
EXAM DESCRIPTION: CT HEAD WITHOUT COMPLETED DATE/TIME: 05/18/2019 3:25 pm REASON FOR STUDY: ams COMPARISON: 08/29/2018 TECHNIQUE: Axial images acquired through the brain without intravenous contrast. Images reviewed wit h bone, brain and subdural windows. Images stored on PACS. All CT scanners at this facility use dose modulation, iterative reconstruction, and/or weight based d osing when appropriate to reduce radiation dose to as low as reasonably achievable (ALARA). [facility]: Dose Right [facility]: CareDose [facility]: Dose Right [facility]: Teradose 4D [facility]: Smart Sellbox RADIATION DOSE: CT Rad equipment meets quality standard of care and radiation dose reduction techniq ues were employed. CTDIvol: 53.2 mGy. DLP: 1097 mGy-cm.. LIMITATIONS: None. FINDINGS: VENTRICLES: Normal size and contour. CEREBRUM: No masses. No hemorrhage. No midline shift. Age appropriate white matter. No evidence for a cute infarction. CEREBELLUM: No masses. No hemorrhage. No alteration of density. No evidence for acute infarction. EXTRA-AXIAL SPACES: No fluid collections. ORBITS AND GLOBE: No intra- or extraconal masses. Normal contour of globe without masses. CALVARIUM: No fracture. PARANASAL SINUSES: No fluid or mucosal thickening. SOFT TISSUES: No mass or hematoma. OTHER: No other significant finding. IMPRESSION: NO ACUTE INTRACRANIAL FINDINGS. EVIDENCE OF ACUTE STROKE: NO. TECHNICAL DOCUMENTATION: JOB ID: [id number] [place]-72 Quality ID # [id number]: Final reports with documentation of one or more dose reduction techniques (e.g., Au tomated exposure control, adjustment of the mA and/or kV according to patient size, use of iterative reconstruction technique) 2010 [employer]- All Rights Reserved Reading location - IP/workstation name: [employer]
[2019-05-18 17:54] LABS: APPEARANCE,URINE CLEAR; BILIRUBIN,URINE NEGATIVE (NEGATIVE); COLOR,URINE YELLOW; GLUCOSE, URINE NEGATIVE (NEGATIVE); KETONES,URINE NEGATIVE (NEGATIVE); PROTEIN,URINE NEGATIVE (NEGATIVE); URINE SPECIFIC GRAVITY 1.018
[2019-05-18 17:55] LABS: LEUKOCYTE ESTERASE,URINE NEGATIVE (NEGATIVE); NITRITE,URINE NEGATIVE (NEGATIVE)
--- NOTE | 2019-05-18 18:05 | RADIOLOGY REPORT (SQ) ---
EXAM DESCRIPTION: CTA CHEST COMPLETED DATE/TIME: 05/18/2019 5:36 pm REASON FOR STUDY: elevated dimer, dyspnea, tachy COMPARISON: None. TECHNIQUE: CT scan of the chest performed using helical scanning technique with dynamic intravenous contrast injection. Images reviewed with lung, soft tissue and bone windows. Reconstructed coronal and sagittal MPR images reviewed. Additional 3 dimensional post-processing performed to develop Maximal Intensity Projection images (OR P). All images stored on PACS. All CT scanners at this facility use dose modulation, iterative reconstruction, and/or weight based d osing when appropriate to reduce radiation dose to as low as reasonably achievable (ALARA). [facility]: Dose Right [facility]: CareDose [facility]: Dose Right [facility]: Teradose 4D [facility]: Adictiz CONTRAST TYPE AND DOSE: 65 mL Omnipaque 300- low osmolar. Contrast bolus optimized for the pulmonary arteries. Not diagnostic for the aorta. RENAL FUNCTION: GFR > 60. RADIATION DOSE: CT Rad equipment meets quality standard of care and radiation dose reduction techniq ues were employed. CTDIvol: 1.9 - 11.1 mGy. DLP: 429 mGy-cm. . LIMITATIONS: None. FINDINGS: LUNGS AND PLEURA: No masses, infiltrates, or pneumothorax. No pleural effusions or pleura l calcifications. AORTA AND GREAT VESSELS: No aneurysm. Minimal aortic valvular calcification. Contrast bolus not opt imized for the aorta. HEART: No pericardial effusion. Coronary artery calcifications. PULMONARY ARTERIES: The main pulmonary artery is normal in size measuring 25 mm. No emboli visualize d in the main pulmonary arteries or the segmental branches. HILAR AND MEDIASTINAL STRUCTURES: Irregular left hilar mass measuring at least 4.3 cm in maximal obli que dimension, which broadly abuts and narrows the left pulmonary, lingular and left basilar arteries . HARDWARE: None in the chest. UPPER ABDOMEN: No significant findings. Limited exam. THYROID AND OTHER SOFT TISSUES: Unremarkable thyroid. Bilateral gynecomastia. BONES: Moderate degenerative changes of the thoracic spine. 3D MIPS: Confirm above findings. OTHER: No other significant finding. IMPRESSION: NO PULMONARY EMBOLISM. IRREGULAR LEFT HILAR MASS MEASURING AT LEAST 4.3 CM, WHICH COURSES ALONG AND NARROWS THE INFERIOR MAR GIN OF THE LEFT PULMONARY ARTERY, AND CORRESPONDING LINGULAR AND LEFT BASILAR BRANCH ARTERIES. COMMENT: Quality ID # 436: Final reports with documentation of one or more dose reduction techniques (e.g., Automated exposure control, adjustment of the mA and/or kV according to patient size, use of iterative reconstruction technique) TECHNICAL DOCUMENTATION: JOB ID: [id number] [employer]- All Rights Reserved Reading location - IP/workstation name: [email or web address]
[2019-05-18 18:06] LABS: URINE AMPHETAMINES SCREEN NEGATIVE; URINE BARBITURATES SCREEN NEGATIVE; URINE BENZODIAZEPINES SCREEN NEGATIVE; URINE COCAINE SCREEN NEGATIVE; URINE MARIJUANA (THC) SCREEN NEGATIVE; URINE METHADONE SCREEN NEGATIVE; URINE PHENCYCLIDINE SCREEN NEGATIVE
--- NOTE | 2019-05-18 23:57 | EKG REPORT ---
SEVERITY:- ABNORMAL ECG - ECTOPIC ATRIAL TACHYCARDIA BORDERLINE RIGHT AXIS DEVIATION BORDERLINE INFERIOR Q WAVES ABNRM R PROG, CONSIDER ASMI OR LEAD PLACEMENT NONSPECIFIC T ABNORMALITIES, INFERIOR LEADS BORDERLINE PROLONGED QT INTERVAL : Confirmed by: Radha Jurado 18-May-2019 23:56:07
[2019-05-19 06:31] LABS: CHOLESTEROL 151.81 mg/dL (0-200); TRIGLYCERIDES 148 mg/dL (<150)
[2019-05-19 06:42] LABS: DIRECT LDL 102 mg/dL (<100)
[2019-05-19] MEDS: NORMAL SALINE 1000 ML 1,000 ML IV PRN (08:06)
[2019-05-19] MEDS: CEFTRIAXONE SODIUM 1,000 MG in DEXTROSE 5%-WATER 50 ML IV SCH (09:38)
[2019-05-19] MEDS: ENOXAPARIN SODIUM INJ 40 MG/0.4 ML DISP.SYRIN SUBCUT SCH (09:38)
[2019-05-19] MEDS ORDERED: CEFTRIAXONE 1 GM/D5W RTU 1 GM/50 ML RTUPB IV SCH (10:00)
--- NOTE | 2019-05-19 11:29 | RADIOLOGY REPORT (SQ) ---
EXAM DESCRIPTION: CAROTID DOPPLER COMPLETED DATE/TIME: 05/19/2019 10:57 am REASON FOR STUDY: SYNCOPE COMPARISON: CT brain 05 18 19 MRI brain 09/19/2018 TECHNIQUE: Grayscale ultrasound, Doppler velocity and spectra, and color Doppler images acquired of the extra-cranial carotid and vertebral arteries. Images stored on PACS. LIMITATIONS: None. FINDINGS: RIGHT CAROTID CCA Velocities: Within normal limits. Right common carotid artery peak systolic velocity 0.99 m/sec ICA Velocities Peak systolic 0.77 m/s. End diastolic 0.20 m/s. Proximal ICA/CCA peak systolic ratio 1.2. Spectra normal. No significant plaque. LEFT CAROTID CCA Velocities: Within normal limits. Left common carotid artery peak systolic velocity 0.83 m/sec ICA Velocities Peak systolic 0.8 m/s. End diastolic 0.18 m/s. Proximal ICA/CCA peak systolic ratio 1.0. Spectra normal. No significant plaque. VERTEBRAL ARTERIES: Antegrade flow. Normal waveforms. SUBCLAVIAN ARTERIES: Not evaluated OTHER: No other significant finding. IMPRESSION: NO HEMODYNAMICALLY SIGNIFICANT STENOSIS. COMMENT: Quality ID #[id number]: Velocity criteria are extrapolated from the diameter data as defined by t he Society of Radiologists in Ultrasound Consensus Conference. Radiology 2003: 229; 340-346. TECHNICAL DOCUMENTATION: JOB ID: [id number] [employer]- All Rights Reserved Reading location - IP/workstation name: [email or web address]
[2019-05-19] MEDS ORDERED: VANCOMYCIN HCL 0 MG in DEXTROSE 5%-WATER 250 ML IV NR (13:15)
--- NOTE | 2019-05-19 13:32 | PDOC H&P ---
History of Present Illness Admission Date/PCP: 05/18/19 19:21 HAZEL ROMAN MD Patient complains of: Faintiung, weakness, recurrent falls History of Present Illness: BESSIE STEPHENS is a 73 year old male patient of Dr Roman who presented to the ED via EMS due to reported episode of fll while attending [employer] service in his attempt to stand up from sitting position. Spouse at bedside denied loss of consciousness or any seizure activity. She reported that patient had recurrent falls over the last few days, There is associated generalized weakness and dizziness. There is poor appetite and oral intake over last couple of days. Patient denied any fever, chills, nausea, vomiting, or abdominal pain. He denied any chest pain, palpitation or difficulty with breathing. His initial evaluation in the ED was remarkable for leukocytosis, elevated lactic acid level, hilar mass and hyponatremia. His morbidities include hypertension, hyperlipidemia, and schizophrenia. He was advised hospitalization for further evaluation and management for possible sepsis, generalized weakness with recurrent falls, and hyponatremia with hilar mass Past Medical History Cardiac Medical History: Reports: Hyperlipidema, Hypertension Psychiatric Medical History: Reports: Depression Social History Lives with: Spouse/Significant other Smoking Status: Never Smoker Frequency of Alcohol Use: None Drugs: None Hx Prescription Drug Abuse: No - Advance Directive Resuscitation Status: Full Code Family History Family History: Reviewed & Not Pertinent Parental Family History Reviewed: Yes Children Family History Reviewed: Yes Sibling(s) Family History Reviewed.: Yes Medication/Allergy Home Medications: Aspirin [Aspirin 81 mg Chewable Tablet] 81 mg PO DAILY 07/23/12 Atenolol [Tenormin 25 mg Tablet] 12.5 mg PO DAILY 07/23/12 Citalopram Hydrobromide [Citalopram HBr] 40 mg PO DAILY 07/23/12 Atorvastatin Calcium [Lipitor 20 mg Tablet] 20 mg PO QHS 05/19/19 Buspirone HCl [Buspar 10 mg Tablet] 10 mg PO Q8 MDD 60 MG 05/19/19 Gabapentin [Neurontin 400 mg Capsule] 400 mg PO QHS 05/19/19 Risperidone [Risperdal] 3 mg PO Q12 05/19/19 Topiramate [Topamax 100 mg Tablet] 100 mg PO Q12 05/19/19 Allergies/Adverse Reactions: haloperidol [From Haldol] Allergy (Verified 09/10/18 17:55) haloperidol lactate [From Haldol] Allergy (Verified 09/10/18 17:55) Review of Systems Constitutional: PRESENT: anorexia, weakness Eyes: ABSENT: visual disturbances Ears: ABSENT: hearing changes Nose, Mouth, and Throat: ABSENT: as per HPI, headache(s), mouth pain, sore throat, vertigo, other Cardiovascular: ABSENT: chest pain, dyspnea on exertion, edema, orthropnea, palpitations Respiratory: ABSENT: cough, hemoptysis Gastrointestinal: ABSENT: abdominal pain, constipation, diarrhea, hematemesis, hematochezia, nausea, vomiting Genitourinary: ABSENT: dysuria, hematuria Musculoskeletal: ABSENT: joint swelling Integumentary: ABSENT: rash, wounds Neurological: PRESENT: dizziness, weakness - generalized Psychiatric: ABSENT: anxiety, depression, homidical ideation, suicidal ideation Endocrine: ABSENT: cold intolerance, heat intolerance, polydipsia, polyuria Hematologic/Lymphatic: ABSENT: easy bleeding, easy bruising, lymphadenopathy Allergic/Immunologic: ABSENT: seasonal rhinorrhea Physical Exam Vital Signs: Temp Pulse Resp BP Pulse Ox 97.6 F 97 17 90/69 L 96 05/19/19 07:39 05/19/19 07:39 05/19/19 07:39 05/19/19 07:39 05/19/19 07:39 Intake & Output 05/18/19 05/19/19 05/20/19 06:59 06:59 06:59 Intake Total 3050 170 Output Total 625 Balance 2425 170 Weight 93.7 kg General appearance: PRESENT: no acute distress, well-developed, well-nourished Head exam: PRESENT: atraumatic, normocephalic Eye exam: PRESENT: conjunctiva pink, EOMI, PERRLA. ABSENT: scleral icterus Ear exam: PRESENT: normal external ear exam Mouth exam: PRESENT: moist Respiratory exam: PRESENT: clear to auscultation ward, decreased breath sounds - at lung bases Cardiovascular exam: PRESENT: RRR. ABSENT: diastolic murmur, rubs, systolic murmur Vascular exam: PRESENT: pallor GI/Abdominal exam: PRESENT: normal bowel sounds, soft. ABSENT: distended, gua rding, mass, organolmegaly, rebound, tenderness Rectal exam: PRESENT: deferred Extremities exam: ABSENT: pedal edema Musculoskeletal exam: PRESENT: normal inspection. ABSENT: tenderness Neurological exam: PRESENT: alert, awake. ABSENT: motor sensory deficit Psychiatric exam: PRESENT: appropriate affect, normal mood. ABSENT: homicidal ideation, suicidal ideation Skin exam: PRESENT: dry, warm Results Laboratory Results: 05/18/19 14:41 05/18/19 14:41 05/18/19 05/18/19 05/18/19 14:41 14:41 14:41 WBC 17.6 H RBC 5.35 Hgb 16.4 Hct 46.7 MCV 87 MCH 30.7 MCHC 35.2 RDW 12.9 Plt Count 307 Seg Neutrophils % 87.0 H Lymphocytes % 5.8 L Monocytes % 6.7 Eosinophils % 0.2 Basophils % 0.3 Absolute Neutrophils 15.3 H Absolute Lymphocytes 1.0 Absolute Monocytes 1.2 Absolute Eosinophils 0.0 Absolute Basophils 0.1 VBG pH 7.53 H VBG pCO2 36.5 VBG HCO3 29.9 VBG Base Excess 7.1 Sodium 124.7 L Potassium 3.3 L Chloride 81 L Carbon Dioxide 29 Anion Gap 15 BUN 47 H Creatinine 1.73 H Est GFR ( Amer) 47 L Est GFR (Non-Af Amer) 39 L Glucose 142 H Lactic Acid Calcium 9.5 Total Bilirubin 1.0 AST 24 ALT 27 Alkaline Phosphatase 90 Total Protein 7.0 Albumin 4.0 Triglycerides Cholesterol LDL Cholesterol Direct VLDL Cholesterol HDL Cholesterol Urine Color Urine Appearance Urine pH Ur Specific [place] Urine Protein Urine Glucose (UA) Urine Ketones Urine Blood Urine Nitrite Ur Leukocyte Esterase Urine WBC (Auto) Urine RBC (Auto) 05/18/19 05/18/19 05/19/19 14:56 16:57 06:01 WBC RBC Hgb Hct MCV MCH MCHC RDW Plt Count Seg Neutrophils % Lymphocytes % Monocytes % Eosinophils % Basophils % Absolute Neutrophils Absolute Lymphocytes Absolute Monocytes Absolute Eosinophils Absolute Basophils VBG pH VBG pCO2 VBG HCO3 VBG Base Excess Sodium Potassium Chloride Carbon Dioxide Anion Gap BUN Creatinine Est GFR ( Amer) Est GFR (Non-Af Amer) Glucose Lactic Acid 3.5 H Calcium Total Bilirubin AST ALT Alkaline Phosphatase Total Protein Albumin Triglycerides 148 Cholesterol 151.81 LDL Cholesterol Direct 102 H VLDL Cholesterol 30.0 HDL Cholesterol 27 L Urine Color YELLOW Urine Appearance CLEAR Urine pH 5.0 Ur Specific [place] 1.018 Urine Protein NEGATIVE Urine Glucose (UA) NEGATIVE Urine Ketones NEGATIVE Urine Blood SMALL H Urine Nitrite NEGATIVE Ur Leukocyte Esterase NEGATIVE Urine WBC (Auto) 2 Urine RBC (Auto) 1 05/18/19 05/18/19 14:41 14:41 Creatine Kinase 36 L CK-MB (CK-2) 0.22 Troponin I < 0.012 NT-Pro-B Natriuret Pep 328 Impressions: Chest X-Ray 05/18/19 14:36 IMPRESSION: NO ACUTE FINDINGS. Head CT 05/18/19 14:38 IMPRESSION: NO ACUTE INTRACRANIAL FINDINGS. EVIDENCE OF ACUTE STROKE: NO. Chest/Abdomen CTA 05/18/19 15:19 IMPRESSION: NO PULMONARY EMBOLISM. IRREGULAR LEFT HILAR MASS MEASURING AT LEAST 4.3 CM, WHICH COURSES ALONG AND NARROWS THE INFERIOR MARGIN OF THE LEFT PULMONARY ARTERY, AND CORRESPONDING LINGULAR AND LEFT BASILAR BRANCH ARTERIES. Carotid Doppler Study 05/19/19 00:00 IMPRESSION: NO HEMODYNAMICALLY SIGNIFICANT STENOSIS. Assessment & Plan - Diagnosis (1) Near syncope Is this a current diagnosis for this admission?: Yes Plan: See covering attending physician admitting orders for details about care plan. (2) Physical debility Is this a current diagnosis for this admission?: Yes Plan: See covering attending physician admitting orders for details about care plan. (3) Hyponatremia Is this a current diagnosis for this admission?: Yes Plan: See covering attending physician admitting orders for details about care plan. (4) Hypotension Qualifiers: Hypotension type: unspecified hypotension type Qualified Code(s): I95.9 - Hypotension, unspecified Is this a current diagnosis for this admission?: Yes Plan: See covering attending physician admitting orders for details about care plan. (5) Elevated lactic acid level Is this a current diagnosis for this admission?: Yes Plan: See covering attending physician admitting orders for details about care plan. (6) Leukocytosis Qualifiers: Leukocytosis type: unspecified Qualified Code(s): D72.829 - Elevated white blood cell count, unspecified Is this a current diagnosis for this admission?: Yes Plan: See covering attending physician admitting orders for details about care plan. (7) Probable sepsis Is this a current diagnosis for this admission?: Yes Plan: See covering attending physician admitting orders for details about care plan. (8) Hilar mass Is this a current diagnosis for this admission?: Yes Plan: See covering attending physician admitting orders for details about care plan. (9) HTN (hypertension) Qualifiers: Hypertension type: essential hypertension Qualified Code(s): I10 - Essential (primary) hypertension Is this a current diagnosis for this admission?: Yes Plan: See covering attending physician admitting orders for details about care plan. (10) HLD (hyperlipidemia) Qualifiers: Hyperlipidemia type: unspecified Qualified Code(s): E78.5 - Hyperlipidemia, unspecified Is this a current diagnosis for this admission?: Yes Plan: See covering attending physician admitting orders for details about care plan. (11) Schizophrenia Qualifiers: Schizophrenia type: unspecified Qualified Code(s): F20.9 - Schizophrenia, unspecified Is this a current diagnosis for this admission?: Yes Plan: See covering attending physician admitting orders for details about care plan. (12) Depression Qualifiers: Depression Type: unspecified Qualified Code(s): F32.9 - Major depressive disorder, single episode, unspecified Is this a current diagnosis for this admission?: Yes Plan: See covering attending physician admitting orders for details about care plan. - Time Time Spent: 50 to 70 Minutes Medications reviewed and adjusted accordingly: Yes Anticipated discharge: Home with Homehealth Within: Other - Inpatient Certification Based on my medical assessment, after consideration of the patient's comorbidities, presenting symptoms, or acuity I expect that the services needed warrant INPATIENT care.: Yes I certify that my determination is in accordance with my understanding of Medicare's requirements for reasonable and necessary INPATIENT services [42 CFR 412.3e].: Yes Medical Necessity: Significant Comorbidiites Make Outpatient Treatment Too Risky, Need Close Monitoring Due to Risk of Patient Decompensation, Need For IV Fluids, Need For Continuous Telemetry Monitoring, Need for IV Antibiotics, Risk of Complication if Not Cared For in Hospital, Risk of Diagnosis Which Will Require Inpatient Eval/Care/Monitoring 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
[2019-05-19 13:39] LABS: HEMATOCRIT 40.4 % (37.9-51.0); MEAN CORPUSCULAR HEMOGLOBIN 30.7 pg (27.0-33.4); MEAN CORPUSCULAR HGB CONC 34.5 g/dL (32.0-36.0); MEAN CORPUSCULAR VOLUME 89 fl (80-97); PLATELET COUNT 211 10^3/uL (150-450); RED BLOOD COUNT 4.53 10^6/uL (4.35-5.55); RED CELL DISTRIBUTION WIDTH 13.2 % (11.5-14.0); WHITE BLOOD COUNT 12.2 10^3/uL (4.0-10.5)
[2019-05-19 13:41] LABS: HEMOGLOBIN 13.9 g/dL (13.5-17.0)
[2019-05-19 13:44] LABS: ANION GAP 9 (5-19); BLOOD UREA NITROGEN 33 mg/dL (7-20); CALCIUM 8.7 mg/dL (8.4-10.2); CARBON DIOXIDE 28 mmol/L (22-30); CHLORIDE 93 mmol/L (98-107); GLUCOSE 95 mg/dL (75-110); SODIUM 129.7 mmol/L (137-145)
[2019-05-19] MEDS: CITALOPRAM HYDROBROMIDE 20 MG TABLET PO SCH (14:21)
[2019-05-19] MEDS: BUSPIRONE HCL 10 MG TABLET PO SCH ×2 (14:21→21:11)
[2019-05-19] MEDS: POTASSIUM CHLORIDE 20 MEQ/50 ML RTU IV SCH ×3 (14:21→19:45)
[2019-05-19 14:24] LABS: ABSOLUTE LYMPHOCYTES# (MANUAL) 1.5 10^3/uL (0.5-4.7); BASOPHILS % (MANUAL) 0 % (0-2); EOSINOPHILS % (MANUAL) 0 % (0-6); LYMPHOCYTES % (MANUAL) 12 % (13-45); MONOCYTES % (MANUAL) 8 % (3-13); SEGMENTED NEUTROPHILS % (MAN) 80 % (42-78); TOTAL CELLS COUNTED 100
[2019-05-19 14:25] LABS: PLATELET CLUMPS PRESENT; PLATELET COMMENT ADEQUATE; RBC MORPHOLOGY COMMENT NORMO-CYTIC/CHROMIC; TOXIC GRANULATION 1+; TOXIC VACUOLATION PRESENT
[2019-05-19 15:41] LABS: OSMOLALITY,URINE 357 mOsm/kg (300-900)
[2019-05-19 15:55] LABS: URINE SODIUM < 5 mmol/L (30-90)
[2019-05-19] MEDS: VANCOMYCIN HCL 1,000 MG in DEXTROSE 5%-WATER 250 ML IV SCH (16:12)
--- NOTE | 2019-05-19 20:48 | XCELERA REPORT ---
[address] [address] Transthoracic Echocardiogram Report Name: BESSIE STEPHENS Age: 73 yrs Gender: Male : 1945 Patient Status: Inpatient Patient Location: [address] [place], [place] [id number] Study Date: 05/19/2019 09:20 AM Height: 72 in Weight: 205 lb BSA: 2.2 m2 Procedure: A two-dimensional transthoracic echocardiogram with color flow and Doppler was performed. Study Quality: Technically suboptimal. The study was technically difficult with many images being suboptimal in quality. Images were not obtained from all of the standard acoustic windows due to the limited scope of the study. Reason For Study: SYNCOPE History: SYNCOPE. Ordering Physician: DEX AKHTAR Performed By: Shirlene Smith Interpretation Summary Images were not obtained from all of the standard acoustic windows due to the limited scope of the study. Probably normal LV size and probably no LVH.Only the Anteroseptum,posterior wall,lateral wall , and IV septum are visualised,with these probably helen normally,at 60%.The rest of the LV soliman not visualised. No or AR.Probaly trace TR and Trace MR.Probably normal RVSP of 21 mm of HG , with RA mean of 10..No other interpretation is possible.Consider other modalities to assess LV,,RV and Valves.No pericardial effusion in limited views. MMode/2D Measurements & Calculations RVDd: 2.6 cm LVIDd: 5.1 cm FS: 26.5 % Ao root diam: 3.1 cm IVSd: 0.89 cm LVIDs: 3.8 cm EDV(Teich): 126.2 ml Ao root area: 7.5 cm2 LVPWd: 0.93 cm ESV(Teich): 61.2 ml EF(Teich): 51.5 % Doppler Measurements & Calculations MV E max anthony: MV dec slope: Ao V2 max: LV V1 max P.1 cm/sec 179.1 cm/sec2 96.5 cm/sec 2.4 mmHg MV A max anthony: MV dec time: 0.21 sec Ao max PG: LV V1 max: 52.6 cm/sec 3.7 mmHg 77.5 cm/sec MV E/A: 0.73 PA V2 max: TR max anthony: 70.3 cm/sec 163.8 cm/sec PA max P.0 mmHg TR max P.7 mmHg Left Ventricle Probably normal LV size and probably no LVH.Only the Anteroseptum,posterior wall,lateral wall , and IV septum are visualised,with these probably helen normally,at 60%.The rest of the LV soliman not visualised. No or AR.Probaly trace TR and Trace MR.Probably normal RVSP of 21 mm of HG , with RA mean of 10..No other interpretation is possible.Consider other modalities to assess LV,,RV and Valves. : DEX AKHTAR > Yola Dutton
[2019-05-19] MEDS: GABAPENTIN 400 MG CAPSULE PO SCH (21:11)
[2019-05-19] MEDS: RISPERIDONE 1 MG TABLET PO SCH (21:11)
[2019-05-19] MEDS: TOPIRAMATE 100 MG TABLET PO SCH (21:11)
[2019-05-19] MEDS: ATORVASTATIN CALCIUM 20 MG TABLET PO SCH (21:11)
[2019-05-19] MEDS ORDERED: (PENDING PHARMACY ID) (Risperidone [Risperdal] 3 MG) PO SCH (22:00)
[2019-05-20] MEDS: VANCOMYCIN HCL 1,000 MG in DEXTROSE 5%-WATER 250 ML IV SCH ×2 (02:31→14:48)
[2019-05-20] MEDS: NORMAL SALINE 1000 ML 1,000 ML IV PRN (02:32)
[2019-05-20] MEDS: PANTOPRAZOLE SODIUM 40 MG TABLET.DR PO SCH (05:18)
[2019-05-20] MEDS: BUSPIRONE HCL 10 MG TABLET PO SCH ×3 (05:18→21:15)
--- NOTE | 2019-05-20 08:42 | PDOC PROGRESS REPORT ---
Subjective Progress Note for:: 05/20/19 Subjective:: Patient denied chest pain or difficulty with breathing. No abdominal pain, nausea or vomiting. No fever or chills. His oral intake remain fair. Reason For Visit: SYNCOPE,HYPOTENSION,LEUKOCYTOSIS,PROBABLE Physical Exam Vital Signs: Temp Pulse Resp BP Pulse Ox 97.4 F 70 18 117/68 96 05/20/19 03:52 05/20/19 07:00 05/20/19 03:52 05/20/19 03:52 05/20/19 03:52 Intake & Output 05/19/19 05/20/19 05/21/19 06:59 06:59 06:59 Intake Total 3050 2650 Output Total 625 2325 Balance 2425 325 Weight 93.7 kg 93.1 kg General appearance: PRESENT: no acute distress, well-developed, well-nourished Head exam: PRESENT: atraumatic, normocephalic Eye exam: PRESENT: conjunctiva pink. ABSENT: scleral icterus Ear exam: PRESENT: normal external ear exam Mouth exam: PRESENT: moist Respiratory exam: PRESENT: clear to auscultation ward, decreased breath sounds - at lung bases Cardiovascular exam: PRESENT: RRR, +S1, +S2. ABSENT: diastolic murmur, rubs, systolic murmur Vascular exam: ABSENT: pallor GI/Abdominal exam: PRESENT: normal bowel sounds, soft. ABSENT: distended, guarding, mass, organolmegaly, rebound, tenderness Extremities exam: ABSENT: pedal edema Neurological exam: PRESENT: alert, awake Psychiatric exam: PRESENT: appropriate affect, normal mood. ABSENT: homicidal ideation, suicidal ideation Skin exam: PRESENT: dry, warm Results Laboratory Results: 05/19/19 06:01 05/19/19 06:01 05/19/19 05/19/19 05/19/19 06:01 06:01 06:01 WBC 12.2 H RBC 4.53 Hgb 13.9 D Hct 40.4 MCV 89 MCH 30.7 MCHC 34.5 RDW 13.2 Plt Count 211 Seg Neutrophils % Not Reportable Lymphocytes % Not Reportable Monocytes % Not Reportable Eosinophils % Not Reportable Basophils % Not Reportable Absolute Neutrophils Not Reportable Absolute Lymphocytes Not Reportable Absolute Monocytes Not Reportable Absolute Eosinophils Not Reportable Absolute Basophils Not Reportable Sodium 129.7 L Potassium 3.0 L* Chloride 93 L Carbon Dioxide 28 Anion Gap 9 BUN 33 H Creatinine 1.22 Est GFR ( Amer) > 60 Est GFR (Non-Af Amer) 59 L Glucose 95 Serum Osmolality 272 L Calcium 8.7 Magnesium 2.3 Urine Osmolality 05/19/19 15:20 WBC RBC Hgb Hct MCV MCH MCHC RDW Plt Count Seg Neutrophils % Lymphocytes % Monocytes % Eosinophils % Basophils % Absolute Neutrophils Absolute Lymphocytes Absolute Monocytes Absolute Eosinophils Absolute Basophils Sodium Potassium Chloride Carbon Dioxide Anion Gap BUN Creatinine Est GFR ( Amer) Est GFR (Non-Af Amer) Glucose Serum Osmolality Calcium Magnesium Urine Osmolality 357 05/18/19 05/18/19 14:41 14:41 Creatine Kinase 36 L CK-MB (CK-2) 0.22 Troponin I < 0.012 NT-Pro-B Natriuret Pep 328 Impressions: Chest X-Ray 05/18/19 14:36 IMPRESSION: NO ACUTE FINDINGS. Head CT 05/18/19 14:38 IMPRESSION: NO ACUTE INTRACRANIAL FINDINGS. EVIDENCE OF ACUTE STROKE: NO. Chest/Abdomen CTA 05/18/19 15:19 IMPRESSION: NO PULMONARY EMBOLISM. IRREGULAR LEFT HILAR MASS MEASURING AT LEAST 4.3 CM, WHICH COURSES ALONG AND NARROWS THE INFERIOR MARGIN OF THE LEFT PULMONARY ARTERY, AND CORRESPONDING LINGULAR AND LEFT BASILAR BRANCH ARTERIES. Carotid Doppler Study 05/19/19 00:00 IMPRESSION: NO HEMODYNAMICALLY SIGNIFICANT STENOSIS. Assessment & Plan - Diagnosis (1) Near syncope Is this a current diagnosis for this admission?: Yes Plan: So far evaluation is not revealing beyond hypotension as possible cause. (2) Physical debility Is this a current diagnosis for this admission?: Yes Plan: Continue current medical and supportive care management. (3) Hyponatremia Is this a current diagnosis for this admission?: Yes Plan: Most likely due to medication and renal impairment. Replacement therapy in progress with improvement in his renal indices. (4) Hypotension Qualifiers: Hypotension type: unspecified hypotension type Qualified Code(s): I95.9 - Hypotension, unspecified Is this a current diagnosis for this admission?: Yes Plan: Continue to hold his preadmission anti HTN medication management. (5) Elevated lactic acid level Is this a current diagnosis for this admission?: Yes Plan: Repeat level on antibiotic coverage. (6) Leukocytosis Qualifiers: Leukocytosis type: unspecified Qualified Code(s): D72.829 - Elevated white blood cell count, unspecified Is this a current diagnosis for this admission?: Yes Plan: Improving on antibiotic coverage. (7) Probable sepsis Is this a current diagnosis for this admission?: Yes Plan: Gram positive cocci in cluster growing in blood culture 1 set. Continue IV Vancomycin and Rocephin coverage. Follow up on culture findings. (8) Hilar mass Is this a current diagnosis for this admission?: Yes Plan: Follow up on pulmonary consultation request for input. (9) HTN (hypertension) Qualifiers: Hypertension type: essential hypertension Qualified Code(s): I10 - Essential (primary) hypertension Is this a current diagnosis for this admission?: Yes Plan: Continue current medical management. (10) HLD (hyperlipidemia) Qualifiers: Hyperlipidemia type: unspecified Qualified Code(s): E78.5 - Hyperlipidemia, unspecified Is this a current diagnosis for this admission?: Yes Plan: Continue current medical management. (11) Schizophrenia Qualifiers: Schizophrenia type: unspecified Qualified Code(s): F20.9 - Schizophrenia, unspecified Is this a current diagnosis for this admission?: Yes Plan: Continue current medical management. (12) Depression Qualifiers: Depression Type: unspecified Qualified Code(s): F32.9 - Major depressive disorder, single episode, unspecified Is this a current diagnosis for this admission?: Yes Plan: Continue current medical management. - Time Time Spent with patient: 25-34 minutes Medications reviewed and adjusted accordingly: Yes Anticipated discharge: Home with Homehealth Within: Other - Inpatient Certification Based on my medical assessment, after consideration of the patient's comorbidi ties, presenting symptoms, or acuity I expect that the services needed warrant INPATIENT care.: Yes I certify that my determination is in accordance with my understanding of Barbara de dios's requirements for reasonable and necessary INPATIENT services [42 CFR 412.3e].: Yes Medical Necessity: Significant Comorbidiites Make Outpatient Treatment Too Risky, Need Close Monitoring Due to Risk of Patient Decompensation, Need For IV Fluids, Need For Continuous Telemetry Monitoring, Need for IV Antibiotics, Risk of Complication if Not Cared For in Hospital, Risk of Diagnosis Which Will Require Inpatient Eval/Care/Monitoring 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 See attending physician orders for care plan details.
[2019-05-20] MEDS: RISPERIDONE 1 MG TABLET PO SCH ×2 (09:33→21:15)
[2019-05-20] MEDS: CITALOPRAM HYDROBROMIDE 20 MG TABLET PO SCH (09:33)
[2019-05-20] MEDS: ENOXAPARIN SODIUM INJ 40 MG/0.4 ML DISP.SYRIN SUBCUT SCH (09:33)
[2019-05-20] MEDS: TOPIRAMATE 100 MG TABLET PO SCH ×2 (09:33→21:15)
[2019-05-20] MEDS: ASPIRIN 81 MG TABLET, CHEWABLE PO SCH (09:33)
[2019-05-20] MEDS: CEFTRIAXONE SODIUM 1,000 MG in DEXTROSE 5%-WATER 50 ML IV SCH (09:33)
[2019-05-20] MEDS ORDERED: (PENDING PHARMACY ID) (Citalopram Hydrobromide [Citalopram Hbr] 40 MG) PO SCH (10:00)
[2019-05-20] MEDS ORDERED: ATENOLOL 12.5 MG PO SCH (10:00)
[2019-05-20 10:49] LABS: ABSOLUTE EOSINOPHILS # (AUTO) 0.1 10^3/uL (0.0-0.6); ABSOLUTE MONOCYTES (AUTO) 0.4 10^3/uL (0.1-1.4); ABSOLUTE NEUT (AUTO) 6.4 10^3/uL (1.7-8.2); BASOPHILS % (AUTO) 0.6 % (0-2); EOSINOPHILS % (AUTO) 1.3 % (0-6); HEMATOCRIT 41.1 % (37.9-51.0); HEMOGLOBIN 14.2 g/dL (13.5-17.0); LYMPHOCYTES % (AUTO) 12.5 % (13-45); MEAN CORPUSCULAR HEMOGLOBIN 31.3 pg (27.0-33.4); MEAN CORPUSCULAR HGB CONC 34.6 g/dL (32.0-36.0); MEAN CORPUSCULAR VOLUME 90 fl (80-97); MONOCYTES % (AUTO) 5.3 % (3-13); PLATELET COUNT 196 10^3/uL (150-450); RED BLOOD COUNT 4.54 10^6/uL (4.35-5.55); RED CELL DISTRIBUTION WIDTH 13.3 % (11.5-14.0); SEGMENTED NEUTROPHILS % (AUTO) 80.3 % (42-78); TOTAL CELLS COUNTED % (AUTO) 100 %
[2019-05-20 11:15] LABS: ALANINE AMINOTRANSFERASE 19 U/L (21-72); ALKALINE PHOSPHATASE 59 U/L (38-126); ANION GAP 8 (5-19); ASPARTATE AMINO TRANSFERASE 18 U/L (17-59); BILIRUBIN,DIRECT 0.2 mg/dL (0.0-0.4); BILIRUBIN,TOTAL 0.3 mg/dL (0.2-1.3); BLOOD UREA NITROGEN 16 mg/dL (7-20); CALCIUM 8.6 mg/dL (8.4-10.2); CARBON DIOXIDE 26 mmol/L (22-30); CHLORIDE 105 mmol/L (98-107); GLUCOSE 121 mg/dL (75-110); POTASSIUM 3.1 mmol/L (3.6-5.0); SODIUM 139.2 mmol/L (137-145); TOTAL PROTEIN 5.6 g/dL (6.3-8.2)
[2019-05-20] MEDS: POTASSIUM CHLORIDE 20 MEQ PACKET PO SCH ×2 (21:15→23:24)
[2019-05-20] MEDS: ATORVASTATIN CALCIUM 20 MG TABLET PO SCH (21:15)
[2019-05-20] MEDS: GABAPENTIN 400 MG CAPSULE PO SCH (21:15)
[2019-05-21] MEDS: VANCOMYCIN HCL 1,000 MG in DEXTROSE 5%-WATER 250 ML IV SCH ×2 (02:27→15:08)
[2019-05-21] MEDS: POTASSIUM CHLORIDE 20 MEQ PACKET PO SCH ×3 (03:32→15:08)
[2019-05-21] MEDS: NORMAL SALINE 1000 ML 1,000 ML IV PRN ×3 (03:32→21:06)
[2019-05-21] MEDS: PANTOPRAZOLE SODIUM 40 MG TABLET.DR PO SCH (05:06)
[2019-05-21] MEDS: BUSPIRONE HCL 10 MG TABLET PO SCH ×3 (05:06→21:06)
[2019-05-21 05:24] LABS: ANION GAP 5 (5-19); BLOOD UREA NITROGEN 11 mg/dL (7-20); CALCIUM 8.2 mg/dL (8.4-10.2); CARBON DIOXIDE 23 mmol/L (22-30); CHLORIDE 112 mmol/L (98-107); GLUCOSE 98 mg/dL (75-110); POTASSIUM 3.7 mmol/L (3.6-5.0); SODIUM 139.9 mmol/L (137-145)
[2019-05-21] MEDS: CITALOPRAM HYDROBROMIDE 20 MG TABLET PO SCH (09:57)
[2019-05-21] MEDS: ASPIRIN 81 MG TABLET, CHEWABLE PO SCH (09:57)
[2019-05-21] MEDS: RISPERIDONE 1 MG TABLET PO SCH ×2 (09:57→21:06)
[2019-05-21] MEDS: ENOXAPARIN SODIUM INJ 40 MG/0.4 ML DISP.SYRIN SUBCUT SCH (09:58)
[2019-05-21] MEDS: ATENOLOL 50 MG TABLET PO SCH (09:58)
[2019-05-21] MEDS ORDERED: ATENOLOL 50 MG TABLET PO SCH (10:00)
[2019-05-21] MEDS: CEFTRIAXONE SODIUM 1,000 MG in DEXTROSE 5%-WATER 50 ML IV SCH (10:08)
[2019-05-21] MEDS: TOPIRAMATE 100 MG TABLET PO SCH ×2 (10:11→21:06)
[2019-05-21 15:33] LABS: VANCOMYCIN,TROUGH 16.2 ug/mL (5.0-20.0)
--- NOTE | 2019-05-21 17:54 | PDOC PROGRESS REPORT ---
Subjective Progress Note for:: 05/21/19 Subjective:: Patient denied chest pain or difficulty with breathing. No abdominal pain, nausea or vomiting. No fever or chills. Improved oral intake. Remain on IV antibiotic coverage and IV fluid support. Reason For Visit: SYNCOPE,HYPOTENSION,LEUKOCYTOSIS,PROBABLE Physical Exam Vital Signs: Temp Pulse Resp BP Pulse Ox 98.6 F 68 15 103/57 L 96 05/21/19 03:32 05/21/19 03:32 05/21/19 03:32 05/21/19 03:32 05/21/19 03:32 Intake & Output 05/20/19 05/21/19 05/22/19 06:59 06:59 06:59 Intake Total 2650 2930 Output Total 2325 1825 Balance 325 1105 Weight 93.1 kg 99.9 kg Physical Exam: General appearance: PRESENT: no acute distress, well-developed, well-nourished Head exam: PRESENT: atraumatic, normocephalic Eye exam: PRESENT: conjunctiva pink. ABSENT: scleral icterus Ear exam: PRESENT: normal external ear exam Mouth exam: PRESENT: moist Respiratory exam: PRESENT: clear to auscultation ward, decreased breath sounds - at lung bases Cardiovascular exam: PRESENT: RRR, +S1, +S2. ABSENT: diastolic murmur, rubs, sy stolic murmur Vascular exam: ABSENT: pallor GI/Abdominal exam: PRESENT: normal bowel sounds, soft. ABSENT: distended, guarding, mass, organomegaly, rebound, tenderness Extremities exam: ABSENT: pedal edema Neurological exam: PRESENT: alert, awake Psychiatric exam: PRESENT: appropriate affect, normal mood. ABSENT: homicidal ideation, suicidal ideation Skin exam: PRESENT: dry, warm Results Laboratory Results: 05/20/19 10:27 05/21/19 04:43 05/20/19 05/20/19 05/20/19 10:27 10:27 10:43 WBC 8.0 RBC 4.54 Hgb 14.2 Hct 41.1 MCV 90 MCH 31.3 MCHC 34.6 RDW 13.3 Plt Count 196 Seg Neutrophils % 80.3 H Lymphocytes % 12.5 L Monocytes % 5.3 Eosinophils % 1.3 Basophils % 0.6 Absolute Neutrophils 6.4 Absolute Lymphocytes 1.0 Absolute Monocytes 0.4 Absolute Eosinophils 0.1 Absolute Basophils 0.0 Sodium 139.2 Potassium 3.1 L Chloride 105 Carbon Dioxide 26 Anion Gap 8 BUN 16 Creatinine 1.04 Est GFR ( Amer) > 60 Est GFR (Non-Af Amer) > 60 Glucose 121 H Lactic Acid 2.7 H Calcium 8.6 Total Bilirubin 0.3 AST 18 ALT 19 L Alkaline Phosphatase 59 Total Protein 5.6 L Albumin 3.0 L 05/20/19 05/21/19 15:00 04:43 WBC RBC Hgb Hct MCV MCH MCHC RDW Plt Count Seg Neutrophils % Lymphocytes % Monocytes % Eosinophils % Basophils % Absolute Neutrophils Absolute Lymphocytes Absolute Monocytes Absolute Eosinophils Absolute Basophils Sodium 139.9 Potassium 3.7 Chloride 112 H Carbon Dioxide 23 Anion Gap 5 BUN 11 Creatinine 1.01 Est GFR ( Amer) > 60 Est GFR (Non-Af Amer) > 60 Glucose 98 Lactic Acid 1.6 Calcium 8.2 L Total Bilirubin AST ALT Alkaline Phosphatase Total Protein Albumin 05/18/19 16:57 Lo Catheter Urine Culture - Final NO GROWTH 2 DAYS 05/18/19 05/18/19 14:41 14:41 Creatine Kinase 36 L CK-MB (CK-2) 0.22 Troponin I < 0.012 NT-Pro-B Natriuret Pep 328 Impressions: Chest X-Ray 05/18/19 14:36 IMPRESSION: NO ACUTE FINDINGS. Head CT 05/18/19 14:38 IMPRESSION: NO ACUTE INTRACRANIAL FINDINGS. EVIDENCE OF ACUTE STROKE: NO. Chest/Abdomen CTA 05/18/19 15:19 IMPRESSION: NO PULMONARY EMBOLISM. IRREGULAR LEFT HILAR MASS MEASURING AT LEAST 4.3 CM, WHICH COURSES ALONG AND NARROWS THE INFERIOR MARGIN OF THE LEFT PULMONARY ARTERY, AND CORRESPONDING LINGULAR AND LEFT BASILAR BRANCH ARTERIES. Carotid Doppler Study 05/19/19 00:00 IMPRESSION: NO HEMODYNAMICALLY SIGNIFICANT STENOSIS. Assessment & Plan - Diagnosis (1) Near syncope Is this a current diagnosis for this admission?: Yes (2) Physical debility Is this a current diagnosis for this admission?: Yes (3) Hyponatremia Is this a current diagnosis for this admission?: Yes (4) Hypotension Qualifiers: Hypotension type: unspecified hypotension type Qualified Code(s): I95.9 - Hypotension, unspecified Is this a current diagnosis for this admission?: Yes (5) Elevated lactic acid level Is this a current diagnosis for this admission?: Yes (6) Leukocytosis Qualifiers: Leukocytosis type: unspecified Qualified Code(s): D72.829 - Elevated white blood cell count, unspecified Is this a current diagnosis for this admission?: Yes (7) Probable sepsis Is this a current diagnosis for this admission?: Yes (8) Hilar mass Is this a current diagnosis for this admission?: Yes (9) HTN (hypertension) Qualifiers: Hypertension type: essential hypertension Qualified Code(s): I10 - Essentia l (primary) hypertension Is this a current diagnosis for this admission?: Yes (10) HLD (hyperlipidemia) Qualifiers: Hyperlipidemia type: unspecified Qualified Code(s): E78.5 - Hyperlipidemia, unspecified Is this a current diagnosis for this admission?: Yes (11) Schizophrenia Qualifiers: Schizophrenia type: unspecified Qualified Code(s): F20.9 - Schizophrenia, unspecified Is this a current diagnosis for this admission?: Yes (12) Depression Qualifiers: Depression Type: unspecified Qualified Code(s): F32.9 - Major depressive disorder, single episode, unspecified Is this a current diagnosis for this admission?: Yes - Time Time Spent with patient: 25-34 minutes Medications reviewed and adjusted accordingly: Yes Anticipated discharge: Home with Homehealth Within: Other - Inpatient Certification Based on my medical assessment, after consideration of the patient's comorbidities, presenting symptoms, or acuity I expect that the services needed warrant INPATIENT care.: Yes I certify that my determination is in accordance with my understanding of Medicare's requirements for reasonable and necessary INPATIENT services [42 CFR 412.3e].: Yes Medical Necessity: Significant Comorbidiites Make Outpatient Treatment Too Risky, Need Close Monitoring Due to Risk of Patient Decompensation, Need For IV Fluids, Need For Continuous Telemetry Monitoring, Need for IV Antibiotics, Risk of Complication if Not Cared For in Hospital, Risk of Diagnosis Which Will Require Inpatient Eval/Care/Monitoring Post Hospital Care: D/C Nursing Coordinator Documentation - Plan Summary Plan Summary: Continue IV antibiotic coverage and follow up on pending blood culture findings. Potassium replacement in progress. Obtain CBC with diff and CMP in A.
[2019-05-21] MEDS: GABAPENTIN 400 MG CAPSULE PO SCH (21:06)
[2019-05-21] MEDS: ATORVASTATIN CALCIUM 20 MG TABLET PO SCH (21:06)
[2019-05-22] MEDS: VANCOMYCIN HCL 1,000 MG in DEXTROSE 5%-WATER 250 ML IV SCH ×2 (02:46→15:32)
[2019-05-22 05:28] LABS: ABSOLUTE BASOPHILS # (AUTO) 0.1 10^3/uL (0.0-0.2); ABSOLUTE EOSINOPHILS # (AUTO) 0.1 10^3/uL (0.0-0.6); ABSOLUTE LYMPHOCYTES (AUTO) 1.2 10^3/uL (0.5-4.7); ABSOLUTE MONOCYTES (AUTO) 0.5 10^3/uL (0.1-1.4); ABSOLUTE NEUT (AUTO) 7.5 10^3/uL (1.7-8.2); BASOPHILS % (AUTO) 0.7 % (0-2); EOSINOPHILS % (AUTO) 1.5 % (0-6); HEMATOCRIT 37.2 % (37.9-51.0); HEMOGLOBIN 12.7 g/dL (13.5-17.0); LYMPHOCYTES % (AUTO) 12.8 % (13-45); MEAN CORPUSCULAR HEMOGLOBIN 31.2 pg (27.0-33.4); MEAN CORPUSCULAR HGB CONC 34.1 g/dL (32.0-36.0); MEAN CORPUSCULAR VOLUME 91 fl (80-97); PLATELET COUNT 203 10^3/uL (150-450); RED BLOOD COUNT 4.07 10^6/uL (4.35-5.55); RED CELL DISTRIBUTION WIDTH 13.8 % (11.5-14.0); TOTAL CELLS COUNTED % (AUTO) 100 %; WHITE BLOOD COUNT 9.3 10^3/uL (4.0-10.5)
[2019-05-22] MEDS: BUSPIRONE HCL 10 MG TABLET PO SCH ×3 (05:41→21:22)
[2019-05-22] MEDS: PANTOPRAZOLE SODIUM 40 MG TABLET.DR PO SCH (05:41)
[2019-05-22 05:45] LABS: ALANINE AMINOTRANSFERASE 18 U/L (21-72); ALBUMIN 2.6 g/dL (3.5-5.0); ALKALINE PHOSPHATASE 53 U/L (38-126); ANION GAP 7 (5-19); ASPARTATE AMINO TRANSFERASE 16 U/L (17-59); BILIRUBIN,DIRECT 0.1 mg/dL (0.0-0.4); BILIRUBIN,TOTAL 0.1 mg/dL (0.2-1.3); BLOOD UREA NITROGEN 8 mg/dL (7-20); CALCIUM 8.5 mg/dL (8.4-10.2); CARBON DIOXIDE 17 mmol/L (22-30); CHLORIDE 119 mmol/L (98-107); GLUCOSE 101 mg/dL (75-110); POTASSIUM 4.5 mmol/L (3.6-5.0); TOTAL PROTEIN 5.1 g/dL (6.3-8.2)
--- NOTE | 2019-05-22 08:01 | PDOC PROGRESS REPORT ---
Subjective Progress Note for:: 05/22/19 Subjective:: Patient denied chest pain or difficulty with breathing. No abdominal pain, nausea or vomiting. Tolerating oral feeding. No fever or chills. Reason For Visit: SYNCOPE,HYPOTENSION,LEUKOCYTOSIS,PROBABLE Physical Exam Vital Signs: Temp Pulse Resp BP Pulse Ox 97.6 F 92 21 H 121/71 97 05/22/19 04:42 05/22/19 04:42 05/22/19 01:54 05/22/19 04:42 05/22/19 04:42 Intake & Output 05/21/19 05/22/19 05/23/19 06:59 06:59 06:59 Intake Total 2930 2702 Output Total 1825 2750 Balance 1105 -48 Weight 99.9 kg 99.4 kg Physical Exam: General appearance: PRESENT: no acute distress, well-developed, well-nourished Head exam: PRESENT: atraumatic, normocephalic Eye exam: PRESENT: conjunctiva pink. ABSENT: scleral icterus Ear exam: PRESENT: normal external ear exam Mouth exam: PRESENT: moist Respiratory exam: PRESENT: clear to auscultation ward, decreased breath sounds - at lung bases Cardiovascular exam: PRESENT: RRR, +S1, +S2. ABSENT: diastolic murmur, rubs, systolic murmur Vascular exam: ABSENT: pallor GI/Abdominal exam: PRESENT: normal bowel sounds, soft. ABSENT: distended, guarding, mass, organomegaly, rebound, tenderness Extremities exam: ABSENT: pedal edema Neurological exam: PRESENT: alert, awake Psychiatric exam: PRESENT: appropriate affect, normal mood. ABSENT: homicidal ideation, suicidal ideation Skin exam: PRESENT: dry, warm Results Laboratory Results: 05/22/19 05:08 05/22/19 05:08 05/22/19 05/22/19 05:08 05:08 WBC 9.3 RBC 4.07 L Hgb 12.7 L Hct 37.2 L MCV 91 MCH 31.2 MCHC 34.1 RDW 13.8 Plt Count 203 Seg Neutrophils % 80.0 H Lymphocytes % 12.8 L Monocytes % 5.0 Eosinophils % 1.5 Basophils % 0.7 Absolute Neutrophils 7.5 Absolute Lymphocytes 1.2 Absolute Monocytes 0.5 Absolute Eosinophils 0.1 Absolute Basophils 0.1 Sodium 143.0 Potassium 4.5 Chloride 119 H Carbon Dioxide 17 L Anion Gap 7 BUN 8 Creatinine 1.05 Est GFR ( Amer) > 60 Est GFR (Non-Af Amer) > 60 Glucose 101 Calcium 8.5 Magnesium 1.9 Total Bilirubin 0.1 L AST 16 L ALT 18 L Alkaline Phosphatase 53 Total Protein 5.1 L Albumin 2.6 L 05/18/19 14:41 Blood Blood Culture - Final Staphylococcus Simulans 05/18/19 05/18/19 14:41 14:41 Creatine Kinase 36 L CK-MB (CK-2) 0.22 Troponin I < 0.012 NT-Pro-B Natriuret Pep 328 Impressions: Chest X-Ray 05/18/19 14:36 IMPRESSION: NO ACUTE FINDINGS. Head CT 05/18/19 14:38 IMPRESSION: NO ACUTE INTRACRANIAL FINDINGS. EVIDENCE OF ACUTE STROKE: NO. Chest/Abdomen CTA 05/18/19 15:19 IMPRESSION: NO PULMONARY EMBOLISM. IRREGULAR LEFT HILAR MASS MEASURING AT LEAST 4.3 CM, WHICH COURSES ALONG AND NARROWS THE INFERIOR MARGIN OF THE LEFT PULMONARY ARTERY, AND CORRESPONDING LINGULAR AND LEFT BASILAR BRANCH ARTERIES. Carotid Doppler Study 05/19/19 00:00 IMPRESSION: NO HEMODYNAMICALLY SIGNIFICANT STENOSIS. Assessment & Plan - Diagnosis (1) Near syncope Is this a current diagnosis for this admission?: Yes (2) Physical debility Is this a current diagnosis for this admission?: Yes (3) Hyponatremia Is this a current diagnosis for this admission?: Yes (4) Hypotension Qualifiers: Hypotension type: unspecified hypotension type Qualified Code(s): I95.9 - Hypotension, unspecified Is this a current diagnosis for this admission?: Yes (5) Elevated lactic acid level Is this a current diagnosis for this admission?: Yes (6) Leukocytosis Qualifiers: Leukocytosis type: unspecified Qualified Code(s): D72.829 - Elevated white blood cell count, unspecified Is this a current diagnosis for this admission?: Yes (7) Probable sepsis Is this a current diagnosis for this admission?: Yes (8) Hilar mass Is this a current diagnosis for this admission?: Yes (9) HTN (hypertension) Qualifiers: Hypertension type: essential hypertension Qualified Code(s): I10 - Essential (primary) hypertension Is this a current diagnosis for this admission?: Yes (10) HLD (hyperlipidemia) Qualifiers: Hyperlipidemia type: unspecified Qualified Code(s): E78.5 - Hyperlipidemia, unspecified Is this a current diagnosis for this admission?: Yes (11) Schizophrenia Qualifiers: Schizophrenia type: unspecified Qualified Code(s): F20.9 - Schizophrenia, unspecified Is this a current diagnosis for this admission?: Yes (12) Depression Qualifiers: Depression Type: unspecified Qualified Code(s): F32.9 - Major depressive disorder, single episode, unspecified Is this a current diagnosis for this admission?: Yes - Time Time Spent with patient: 25-34 minutes Medications reviewed and adjusted accordingly: Yes Anticipated discharge: Home with Homehealth Within: Other - Inpatient Certification Based on my medical assessment, after consideration of the patient's comorbidities, presenting symptoms, or acuity I expect that the services needed warrant INPATIENT care.: Yes I certify that my determination is in accordance with my understanding of Medicare's requirements for reasonable and necessary INPATIENT services [42 CFR 412.3e].: Yes Medical Necessity: Significant Comorbidiites Make Outpatient Treatment Too Ri tess, Need Close Monitoring Due to Risk of Patient Decompensation, Need For IV Fluids, Need For Continuous Telemetry Monitoring, Need for IV Antibiotics, Risk of Complication if Not Cared For in Hospital, Risk of Diagnosis Which Will Require Inpatient Eval/Care/Monitoring Post Hospital Care: D/C Industrial Registered Nurse Documentation - Plan Summary Plan Summary: Continue current medication management. Encouraged participation in PT session.
[2019-05-22] MEDS: ATENOLOL 50 MG TABLET PO SCH (10:06)
[2019-05-22] MEDS: CITALOPRAM HYDROBROMIDE 20 MG TABLET PO SCH (10:07)
[2019-05-22] MEDS: ASPIRIN 81 MG TABLET, CHEWABLE PO SCH (10:07)
[2019-05-22] MEDS: ENOXAPARIN SODIUM INJ 40 MG/0.4 ML DISP.SYRIN SUBCUT SCH (10:08)
[2019-05-22] MEDS: RISPERIDONE 1 MG TABLET PO SCH ×2 (10:08→21:22)
[2019-05-22] MEDS: CEFTRIAXONE SODIUM 1,000 MG in DEXTROSE 5%-WATER 50 ML IV SCH (10:11)
[2019-05-22] MEDS: NORMAL SALINE 1000 ML 1,000 ML IV PRN (10:14)
[2019-05-22] MEDS: TOPIRAMATE 100 MG TABLET PO SCH ×2 (10:27→21:23)
[2019-05-22] MEDS: FLUDROCORTISONE ACETATE 0.1 MG TABLET PO SCH (20:03)
[2019-05-22] MEDS: MIDODRINE HCL 5 MG TABLET PO SCH (20:03)
[2019-05-22] MEDS: ATORVASTATIN CALCIUM 20 MG TABLET PO SCH (21:22)
[2019-05-22] MEDS: GABAPENTIN 400 MG CAPSULE PO SCH (21:22)
[2019-05-23] MEDS: NORMAL SALINE 1000 ML 1,000 ML IV PRN ×2 (00:19→21:14)
[2019-05-23] MEDS: VANCOMYCIN HCL 1,000 MG in DEXTROSE 5%-WATER 250 ML IV SCH ×2 (03:43→15:57)
[2019-05-23] MEDS: BUSPIRONE HCL 10 MG TABLET PO SCH ×3 (05:30→21:14)
[2019-05-23] MEDS: PANTOPRAZOLE SODIUM 40 MG TABLET.DR PO SCH (05:30)
[2019-05-23] MEDS: MIDODRINE HCL 5 MG TABLET PO SCH ×3 (10:00→17:21)
[2019-05-23] MEDS: ASPIRIN 81 MG TABLET, CHEWABLE PO SCH (10:00)
[2019-05-23] MEDS: ATENOLOL 50 MG TABLET PO SCH (10:00)
[2019-05-23] MEDS: RISPERIDONE 1 MG TABLET PO SCH ×2 (10:00→21:13)
[2019-05-23] MEDS: CEFTRIAXONE SODIUM 1,000 MG in DEXTROSE 5%-WATER 50 ML IV SCH (10:01)
[2019-05-23] MEDS: CITALOPRAM HYDROBROMIDE 20 MG TABLET PO SCH (10:02)
[2019-05-23] MEDS: ENOXAPARIN SODIUM INJ 40 MG/0.4 ML DISP.SYRIN SUBCUT SCH (10:02)
[2019-05-23] MEDS: FLUDROCORTISONE ACETATE 0.1 MG TABLET PO SCH (10:02)
[2019-05-23] MEDS: TOPIRAMATE 100 MG TABLET PO SCH ×2 (10:03→21:14)
--- NOTE | 2019-05-23 16:57 | PDOC PROGRESS REPORT ---
Subjective Progress Note for:: 05/23/19 Subjective:: Patient chest pain or difficulty with breathing. Less dizziness with siting up in bed. No abdominal pain, nausea or vomiting. Tolerating oral feeding. No fever or chills. Reason For Visit: SYNCOPE,HYPOTENSION,LEUKOCYTOSIS,PROBABLE Physical Exam Vital Signs: Temp Pulse Resp BP Pulse Ox 97.7 F 109 H 23 H 120/67 98 05/23/19 11:28 05/23/19 14:00 05/23/19 11:28 05/23/19 11:28 05/23/19 11:28 Intake & Output 05/22/19 05/23/19 05/24/19 06:59 06:59 06:59 Intake Total 2702 3148 420 Output Total 2750 2950 Balance -48 198 420 Weight 99.4 kg 99 kg Physical Exam: General appearance: PRESENT: no acute distress, well-developed, well-nourished Head exam: PRESENT: atraumatic, normocephalic Eye exam: PRESENT: conjunctiva pink. ABSENT: scleral icterus Ear exam: PRESENT: normal external ear exam Mouth exam: PRESENT: moist Respiratory exam: PRESENT: clear to auscultation ward, decreased breath sounds - at lung bases Cardiovascular exam: PRESENT: RRR, +S1, +S2. ABSENT: diastolic murmur, rubs, systolic murmur Vascular exam: ABSENT: pallor GI/Abdominal exam: PRESENT: normal bowel sounds, soft. ABSENT: distended, guarding, mass, organomegaly, rebound, tenderness Extremities exam: ABSENT: pedal edema Neurological exam: PRESENT: alert, awake Psychiatric exam: PRESENT: appropriate affect, normal mood. ABSENT: homicidal ideation, suicidal ideation Skin exam: PRESENT: dry, warm Results Laboratory Results: 05/22/19 05:08 05/22/19 05:08 05/18/19 05/18/19 14:41 14:41 Creatine Kinase 36 L CK-MB (CK-2) 0.22 Troponin I < 0.012 NT-Pro-B Natriuret Pep 328 Impressions: Chest X-Ray 05/18/19 14:36 IMPRESSION: NO ACUTE FINDINGS. Head CT 05/18/19 14:38 IMPRESSION: NO ACUTE INTRACRANIAL FINDINGS. EVIDENCE OF ACUTE STROKE: NO. Chest/Abdomen CTA 05/18/19 15:19 IMPRESSION: NO PULMONARY EMBOLISM. IRREGULAR LEFT HILAR MASS MEASURING AT LEAST 4.3 CM, WHICH COURSES ALONG AND NARROWS THE INFERIOR MARGIN OF THE LEFT PULMONARY ARTERY, AND CORRESPONDING LINGULAR AND LEFT BASILAR BRANCH ARTERIES. Carotid Doppler Study 05/19/19 00:00 IMPRESSION: NO HEMODYNAMICALLY SIGNIFICANT STENOSIS. Assessment & Plan - Diagnosis (1) Near syncope Is this a current diagnosis for this admission?: Yes (2) Physical debility Is this a current diagnosis for this admission?: Yes (3) Hyponatremia Is this a current diagnosis for this admission?: Yes (4) Hypotension Qualifiers: Hypotension type: unspecified hypotension type Qualified Code(s): I95.9 - Hypotension, unspecified Is this a current diagnosis for this admission?: Yes (5) Elevated lactic acid level Is this a current diagnosis for this admission?: Yes (6) Leukocytosis Qualifiers: Leukocytosis type: unspecified Qualified Code(s): D72.829 - Elevated white blood cell count, unspecified Is this a current diagnosis for this admission?: Yes (7) Probable sepsis Is this a current diagnosis for this admission?: Yes (8) Hilar mass Is this a current diagnosis for this admission?: Yes (9) HTN (hypertension) Qualifiers: Hypertension type: essential hypertension Qualified Code(s): I10 - Essential (primary) hypertension Is this a current diagnosis for this admission?: Yes (10) HLD (hyperlipidemia) Qualifiers: Hyperlipidemia type: unspecified Qualified Code(s): E78.5 - Hyperlipidemia, unspecified Is this a current diagnosis for this admission?: Yes (11) Schizophrenia Qualifiers: Schizophrenia type: unspecified Qualified Code(s): F20.9 - Schizophrenia, unspecified Is this a current diagnosis for this admission?: Yes (12) Depression Qualifiers: Depression Type: unspecified Qualified Code(s): F32.9 - Major depressive disorder, single episode, unspecified Is this a current diagnosis for this admission?: Yes - Time Time Spent with patient: 25-34 minutes Medications reviewed and adjusted accordingly: Yes Anticipated discharge: Home with Homehealth Within: Other - Inpatient Certification Based on my medical assessment, after consideration of the patient's comorbidities, presenting symptoms, or acuity I expect that the services needed warrant INPATIENT care.: Yes I certify that my determination is in accordance with my understanding of Medicare's requirements for reasonable and necessary INPATIENT services [42 CFR 412.3e].: Yes Medical Necessity: Significant Comorbidiites Make Outpatient Treatment Too Risky, Need Close Monitoring Due to Risk of Patient Decompensation, Need For IV Fluids, Need For Continuous Telemetry Monitoring, Need for IV Antibiotics, Risk of Complication if Not Cared For in Hospital, Risk of Diagnosis Which Will Require Inpatient Eval/Care/Monitoring Post Hospital Care: D/C Brake Lining Maker Documentation - Plan Summary Plan Summary: Decrease IV fluid to 50 ml/hour. Continue Florinef and Midodrine therapy. Continue IV antibiotic therapy and follow up on blood culture findings.
[2019-05-23] MEDS: GABAPENTIN 400 MG CAPSULE PO SCH (21:14)
[2019-05-23] MEDS: ATORVASTATIN CALCIUM 20 MG TABLET PO SCH (21:14)
[2019-05-24] MEDS: VANCOMYCIN HCL 1,000 MG in DEXTROSE 5%-WATER 250 ML IV SCH ×2 (02:18→14:08)
[2019-05-24] MEDS: PANTOPRAZOLE SODIUM 40 MG TABLET.DR PO SCH (05:05)
[2019-05-24] MEDS: BUSPIRONE HCL 10 MG TABLET PO SCH ×3 (05:05→23:07)
[2019-05-24] MEDS: CEFTRIAXONE SODIUM 1,000 MG in DEXTROSE 5%-WATER 50 ML IV SCH (10:13)
[2019-05-24] MEDS: RISPERIDONE 1 MG TABLET PO SCH ×2 (10:13→23:07)
[2019-05-24] MEDS: MIDODRINE HCL 5 MG TABLET PO SCH ×3 (10:13→17:22)
[2019-05-24] MEDS: ASPIRIN 81 MG TABLET, CHEWABLE PO SCH (10:14)
[2019-05-24] MEDS: ATENOLOL 50 MG TABLET PO SCH (10:14)
[2019-05-24] MEDS: CITALOPRAM HYDROBROMIDE 20 MG TABLET PO SCH (10:14)
[2019-05-24] MEDS: FLUDROCORTISONE ACETATE 0.1 MG TABLET PO SCH (10:15)
[2019-05-24] MEDS: TOPIRAMATE 100 MG TABLET PO SCH ×2 (10:16→23:07)
[2019-05-24] MEDS: ENOXAPARIN SODIUM INJ 40 MG/0.4 ML DISP.SYRIN SUBCUT SCH (10:16)
--- NOTE | 2019-05-24 17:01 | PDOC PROGRESS REPORT ---
Subjective Progress Note for:: 05/24/19 Subjective:: Patient was seen by the bedside he has no new complaints Reason For Visit: SYNCOPE,HYPOTENSION,LEUKOCYTOSIS,PROBABLE Physical Exam Vital Signs: Temp Pulse Resp BP Pulse Ox 97.4 F 61 18 115/62 98 05/24/19 14:47 05/24/19 14:47 05/24/19 14:47 05/24/19 14:47 05/24/19 14:47 Intake & Output 05/23/19 05/24/19 05/25/19 06:59 06:59 06:59 Intake Total 3148 2820 1125 Output Total 2950 500 1600 Balance 198 2320 -475 Weight 99 kg 101.1 kg General appearance: PRESENT: no acute distress Eye exam: PRESENT: PERRLA Respiratory exam: PRESENT: clear to auscultation ward Cardiovascular exam: PRESENT: +S1, +S2 Neurological exam: PRESENT: alert Results Laboratory Results: 05/22/19 05:08 05/22/19 05:08 05/18/19 18:10 Blood Blood Culture - Final NO GROWTH IN 5 DAYS 05/18/19 05/18/19 14:41 14:41 Creatine Kinase 36 L CK-MB (CK-2) 0.22 Troponin I < 0.012 NT-Pro-B Natriuret Pep 328 Impressions: Chest X-Ray 05/18/19 14:36 IMPRESSION: NO ACUTE FINDINGS. Head CT 05/18/19 14:38 IMPRESSION: NO ACUTE INTRACRANIAL FINDINGS. EVIDENCE OF ACUTE STROKE: NO. Chest/Abdomen CTA 05/18/19 15:19 IMPRESSION: NO PULMONARY EMBOLISM. IRREGULAR LEFT HILAR MASS MEASURING AT LEAST 4.3 CM, WHICH COURSES ALONG AND NARROWS THE INFERIOR MARGIN OF THE LEFT PULMONARY ARTERY, AND CORRESPONDING LINGULAR AND LEFT BASILAR BRANCH ARTERIES. Carotid Doppler Study 05/19/19 00:00 IMPRESSION: NO HEMODYNAMICALLY SIGNIFICANT STENOSIS. Assessment & Plan - Diagnosis (1) Hypotension Qualifiers: Hypotension type: idiopathic hypotension Qualified Code(s): I95.0 - Idiopathic hypotension Is this a current diagnosis for this admission?: Yes (2) Lactic acid acidosis Is this a current diagnosis for this admission?: Yes (3) Mass of hilum Is this a current diagnosis for this admission?: Yes - Plan Summary Plan Summary: continue treatment
[2019-05-24] MEDS: ATORVASTATIN CALCIUM 20 MG TABLET PO SCH (23:07)
[2019-05-24] MEDS: GABAPENTIN 400 MG CAPSULE PO SCH (23:07)
[2019-05-25] MEDS: VANCOMYCIN HCL 1,000 MG in DEXTROSE 5%-WATER 250 ML IV SCH ×2 (02:11→14:16)
[2019-05-25] MEDS: PANTOPRAZOLE SODIUM 40 MG TABLET.DR PO SCH (05:16)
[2019-05-25] MEDS: BUSPIRONE HCL 10 MG TABLET PO SCH ×3 (05:16→22:26)
[2019-05-25] MEDS: ATENOLOL 50 MG TABLET PO SCH (09:56)
[2019-05-25] MEDS: CITALOPRAM HYDROBROMIDE 20 MG TABLET PO SCH (09:56)
[2019-05-25] MEDS: RISPERIDONE 1 MG TABLET PO SCH ×2 (09:57→22:26)
[2019-05-25] MEDS: ENOXAPARIN SODIUM INJ 40 MG/0.4 ML DISP.SYRIN SUBCUT SCH (09:57)
[2019-05-25] MEDS: ASPIRIN 81 MG TABLET, CHEWABLE PO SCH (09:57)
[2019-05-25] MEDS: MIDODRINE HCL 5 MG TABLET PO SCH ×3 (09:57→17:20)
[2019-05-25] MEDS: FLUDROCORTISONE ACETATE 0.1 MG TABLET PO SCH (09:58)
[2019-05-25] MEDS: CEFTRIAXONE SODIUM 1,000 MG in DEXTROSE 5%-WATER 50 ML IV SCH (10:00)
[2019-05-25] MEDS: TOPIRAMATE 100 MG TABLET PO SCH ×2 (10:00→22:26)
--- NOTE | 2019-05-25 15:09 | PDOC PROGRESS REPORT ---
Subjective Progress Note for:: 05/25/19 Subjective:: Patient was seen by the bedside he has no new complaints Reason For Visit: SYNCOPE,HYPOTENSION,LEUKOCYTOSIS,PROBABLE Physical Exam Vital Signs: Temp Pulse Resp BP Pulse Ox 98.5 F 55 L 17 115/67 92 05/25/19 05:16 05/25/19 07:00 05/25/19 05:16 05/25/19 05:19 05/25/19 05:19 Intake & Output 05/24/19 05/25/19 05/26/19 06:59 06:59 06:59 Intake Total 2820 1675 Output Total 500 2600 Balance 2320 -925 Weight 101.1 kg 101.2 kg General appearance: PRESENT: no acute distress Eye exam: PRESENT: PERRLA Respiratory exam: PRESENT: clear to auscultation ward Cardiovascular exam: PRESENT: +S1, +S2 GI/Abdominal exam: PRESENT: soft Results Laboratory Results: 05/22/19 05:08 05/22/19 05:08 05/18/19 05/18/19 14:41 14:41 Creatine Kinase 36 L CK-MB (CK-2) 0.22 Troponin I < 0.012 NT-Pro-B Natriuret Pep 328 Impressions: Chest X-Ray 05/18/19 14:36 IMPRESSION: NO ACUTE FINDINGS. Head CT 05/18/19 14:38 IMPRESSION: NO ACUTE INTRACRANIAL FINDINGS. EVIDENCE OF ACUTE STROKE: NO. Chest/Abdomen CTA 05/18/19 15:19 IMPRESSION: NO PULMONARY EMBOLISM. IRREGULAR LEFT HILAR MASS MEASURING AT LEAST 4.3 CM, WHICH COURSES ALONG AND NARROWS THE INFERIOR MARGIN OF THE LEFT PULMONARY ARTERY, AND CORRESPONDING LINGULAR AND LEFT BASILAR BRANCH ARTERIES. Carotid Doppler Study 05/19/19 00:00 IMPRESSION: NO HEMODYNAMICALLY SIGNIFICANT STENOSIS. Assessment & Plan - Diagnosis (1) Hypotension Qualifiers: Hypotension type: idiopathic hypotension Qualified Code(s): I95.0 - Idiopathic hypotension Is this a current diagnosis for this admission?: Yes (2) Lactic acid acidosis Is this a current diagnosis for this admission?: Yes (3) Mass of hilum Is this a current diagnosis for this admission?: Yes
[2019-05-25] MEDS: GABAPENTIN 400 MG CAPSULE PO SCH (22:26)
[2019-05-25] MEDS: ATORVASTATIN CALCIUM 20 MG TABLET PO SCH (22:26)
[2019-05-26] MEDS: VANCOMYCIN HCL 1,000 MG in DEXTROSE 5%-WATER 250 ML IV SCH (03:02)
[2019-05-26] MEDS: PANTOPRAZOLE SODIUM 40 MG TABLET.DR PO SCH (05:44)
[2019-05-26] MEDS: BUSPIRONE HCL 10 MG TABLET PO SCH ×3 (05:44→21:23)
--- NOTE | 2019-05-26 08:18 | PDOC PROGRESS REPORT ---
Subjective Progress Note for:: 05/26/19 Subjective:: Less issue with postural dizziness per spousal and patient report over the weekend. IV antibiotic on 7th day of administration. Remain on IV fluid support. No chest pain, difficulty with breathing, fever, chills, nausea, vomiting, or abdominal pain. Reason For Visit: SYNCOPE,HYPOTENSION,LEUKOCYTOSIS,PROBABLE Physical Exam Vital Signs: Temp Pulse Resp BP Pulse Ox 98.3 F 57 L 18 116/57 L 100 05/25/19 15:00 05/26/19 02:00 05/25/19 15:00 05/25/19 15:00 05/25/19 15:00 Intake & Output 05/25/19 05/26/19 05/27/19 06:59 06:59 06:59 Intake Total 1675 2025 Output Total 2600 2700 Balance -925 -675 Weight 101.2 kg 101.5 kg Physical Exam: General appearance: PRESENT: no acute distress, well-developed, well-nourished Head exam: PRESENT: atraumatic, normocephalic Eye exam: PRESENT: conjunctiva pink. ABSENT: scleral icterus Ear exam: PRESENT: normal external ear exam Mouth exam: PRESENT: moist Respiratory exam: PRESENT: clear to auscultation ward, decreased breath sounds - at lung bases Cardiovascular exam: PRESENT: RRR, +S1, +S2. ABSENT: diastolic murmur, rubs, systolic murmur Vascular exam: ABSENT: pallor GI/Abdominal exam: PRESENT: normal bowel sounds, soft. ABSENT: distended, guarding, mass, organomegaly, rebound, tenderness Extremities exam: ABSENT: pedal edema Neurological exam: PRESENT: alert, awake Psychiatric exam: PRESENT: appropriate affect, normal mood. ABSENT: homicidal ideation, suicidal ideation Skin exam: PRESENT: dry, warm Results Laboratory Results: 05/22/19 05:08 05/22/19 05:08 05/18/19 05/18/19 14:41 14:41 Creatine Kinase 36 L CK-MB (CK-2) 0.22 Troponin I < 0.012 NT-Pro-B Natriuret Pep 328 Impressions: Chest X-Ray 05/18/19 14:36 IMPRESSION: NO ACUTE FINDINGS. Head CT 05/18/19 14:38 IMPRESSION: NO ACUTE INTRACRANIAL FINDINGS. EVIDENCE OF ACUTE STROKE: NO. Chest/Abdomen CTA 05/18/19 15:19 IMPRESSION: NO PULMONARY EMBOLISM. IRREGULAR LEFT HILAR MASS MEASURING AT LEAST 4.3 CM, WHICH COURSES ALONG AND NARROWS THE INFERIOR MARGIN OF THE LEFT PULMONARY ARTERY, AND CORRESPONDING LINGULAR AND LEFT BASILAR BRANCH ARTERIES. Carotid Doppler Study 05/19/19 00:00 IMPRESSION: NO HEMODYNAMICALLY SIGNIFICANT STENOSIS. Assessment & Plan - Diagnosis (1) Near syncope Is this a current diagnosis for this admission?: Yes (2) Physical debility Is this a current diagnosis for this admission?: Yes (3) Hyponatremia Is this a current diagnosis for this admission?: Yes (4) Hypotension Qualifiers: Hypotension type: unspecified hypotension type Qualified Code(s): I95.9 - Hypotension, unspecified Is this a current diagnosis for this admission?: Yes (5) Elevated lactic acid level Is this a current diagnosis for this admission?: Yes (6) Leukocytosis Qualifiers: Leukocytosis type: unspecified Qualified Code(s): D72.829 - Elevated white blood cell count, unspecified Is this a current diagnosis for this admission?: Yes (7) Probable sepsis Is this a current diagnosis for this admission?: Yes (8) Hilar mass Is this a current diagnosis for this admission?: Yes (9) HTN (hypertension) Qualifiers: Hypertension type: essential hypertension Qualified Code(s): I10 - Essential (primary) hypertension Is this a current diagnosis for this admission?: Yes (10) HLD (hyperlipidemia) Qualifiers: Hyperlipidemia type: unspecified Qualified Code(s): E78.5 - Hyperlipidemia, unspecified Is this a current diagnosis for this admission?: Yes (11) Schizophrenia Qualifiers: Schizophrenia type: unspecified Qualified Code(s): F20.9 - Schizophrenia, unspecified Is this a current diagnosis for this admission?: Yes (12) Depression Qualifiers: Depression Type: unspecified Qualified Code(s): F32.9 - Major depressive disorder, single episode, unspecified Is this a current diagnosis for this admission?: Yes - Time Time Spent with patient: 25-34 minutes Medications reviewed and adjusted accordingly: Yes Anticipated discharge: Home with Homehealth Within: Other - Inpatient Certification Based on my medical assessment, after consideration of the patient's comorbidities, presenting symptoms, or acuity I expect that the services needed warrant INPATIENT care.: Yes I certify that my determination is in accordance with my understanding of [facility]'s requirements for reasonable and necessary INPATIENT services [42 CFR 412.3e].: Yes Medical Necessity: Significant Comorbidiites Make Outpatient Treatment Too Risky, Need Close Monitoring Due to Risk of Patient Decompensation, Need For IV Fluids, Need For Continuous Telemetry Monitoring, Need for IV Antibiotics, Risk of Complication if Not Cared For in Hospital, Risk of Diagnosis Which Will Require Inpatient Eval/Care/Monitoring Post Hospital Care: D/C Bombsight Specialist Documentation - Plan Summary Plan Summary: Complete 7 days of antibiotic coverage. Maintain on all other current medication management. Encouraged participation in physical therapy.
[2019-05-26] MEDS: ASPIRIN 81 MG TABLET, CHEWABLE PO SCH (10:23)
[2019-05-26] MEDS: ATENOLOL 50 MG TABLET PO SCH (10:23)
[2019-05-26] MEDS: CITALOPRAM HYDROBROMIDE 20 MG TABLET PO SCH (10:23)
[2019-05-26] MEDS: RISPERIDONE 1 MG TABLET PO SCH ×2 (10:23→21:23)
[2019-05-26] MEDS: TOPIRAMATE 100 MG TABLET PO SCH ×2 (10:23→21:23)
[2019-05-26] MEDS: MIDODRINE HCL 5 MG TABLET PO SCH ×3 (10:24→17:06)
[2019-05-26] MEDS: FLUDROCORTISONE ACETATE 0.1 MG TABLET PO SCH (10:24)
[2019-05-26] MEDS: ENOXAPARIN SODIUM INJ 40 MG/0.4 ML DISP.SYRIN SUBCUT SCH (10:25)
[2019-05-26] MEDS: NORMAL SALINE 1000 ML 1,000 ML IV PRN (13:04)
[2019-05-26 16:13] LABS: VANCOMYCIN,TROUGH 13.8 ug/mL (5.0-20.0)
[2019-05-26] MEDS: ATORVASTATIN CALCIUM 20 MG TABLET PO SCH (21:23)
[2019-05-26] MEDS: GABAPENTIN 400 MG CAPSULE PO SCH (21:23)
[2019-05-27] MEDS: BUSPIRONE HCL 10 MG TABLET PO SCH ×3 (05:53→21:00)
[2019-05-27] MEDS: PANTOPRAZOLE SODIUM 40 MG TABLET.DR PO SCH (05:53)
[2019-05-27] MEDS: ENOXAPARIN SODIUM INJ 40 MG/0.4 ML DISP.SYRIN SUBCUT SCH (10:58)
[2019-05-27] MEDS: ASPIRIN 81 MG TABLET, CHEWABLE PO SCH (10:59)
[2019-05-27] MEDS: ATENOLOL 50 MG TABLET PO SCH (10:59)
[2019-05-27] MEDS: CITALOPRAM HYDROBROMIDE 20 MG TABLET PO SCH (10:59)
[2019-05-27] MEDS: RISPERIDONE 1 MG TABLET PO SCH ×2 (10:59→21:01)
[2019-05-27] MEDS: MIDODRINE HCL 5 MG TABLET PO SCH ×3 (10:59→17:41)
[2019-05-27] MEDS: NORMAL SALINE 1000 ML 1,000 ML IV PRN (11:00)
[2019-05-27] MEDS: TOPIRAMATE 100 MG TABLET PO SCH ×2 (11:00→21:01)
[2019-05-27] MEDS: FLUDROCORTISONE ACETATE 0.1 MG TABLET PO SCH (11:18)
--- NOTE | 2019-05-27 17:55 | PDOC PROGRESS REPORT ---
Subjective Progress Note for:: 05/27/19 Subjective:: No chest pain, difficulty with breathing, fever, chills, nausea, vomiting, or abdominal pain. Participating in PT sessions. Reason For Visit: SYNCOPE,HYPOTENSION,LEUKOCYTOSIS,PROBABLE Physical Exam Vital Signs: Temp Pulse Resp BP Pulse Ox 98.1 F 63 18 119/66 99 05/27/19 09:40 05/27/19 09:40 05/27/19 09:40 05/27/19 09:40 05/27/19 09:40 Intake & Output 05/26/19 05/27/19 05/28/19 06:59 06:59 06:59 Intake Total 2024 975 1000 Output Total 2700 1100 Balance -675 -125 1000 Weight 101.5 kg 102.7 kg Physical Exam: General appearance: PRESENT: no acute distress, well-developed, well-nourished Head exam: PRESENT: atraumatic, normocephalic Eye exam: PRESENT: conjunctiva pink. ABSENT: scleral icterus Ear exam: PRESENT: normal external ear exam Mouth exam: PRESENT: moist Respiratory exam: PRESENT: clear to auscultation ward, decreased breath sounds - at lung bases Cardiovascular exam: PRESENT: RRR, +S1, +S2. ABSENT: diastolic murmur, rubs, systolic murmur Vascular exam: ABSENT: pallor GI/Abdominal exam: PRESENT: normal bowel sounds, soft. ABSENT: distended, guarding, mass, organomegaly, rebound, tenderness Extremities exam: ABSENT: pedal edema Neurological exam: PRESENT: alert, awake Psychiatric exam: PRESENT: appropriate affect, normal mood. ABSENT: homicidal ideation, suicidal ideation Skin exam: PRESENT: dry, warm Results Laboratory Results: 05/22/19 05:08 05/26/19 15:33 05/26/19 15:33 Creatinine 0.99 Est GFR ( Amer) > 60 Est GFR (Non-Af Amer) > 60 05/18/19 05/18/19 14:41 14:41 Creatine Kinase 36 L CK-MB (CK-2) 0.22 Troponin I < 0.012 NT-Pro-B Natriuret Pep 328 Impressions: Chest X-Ray 05/18/19 14:36 IMPRESSION: NO ACUTE FINDINGS. Head CT 05/18/19 14:38 IMPRESSION: NO ACUTE INTRACRANIAL FINDINGS. EVIDENCE OF ACUTE STROKE: NO. Chest/Abdomen CTA 05/18/19 15:19 IMPRESSION: NO PULMONARY EMBOLISM. IRREGULAR LEFT HILAR MASS MEASURING AT LEAST 4.3 CM, WHICH COURSES ALONG AND ROE ROWS THE INFERIOR MARGIN OF THE LEFT PULMONARY ARTERY, AND CORRESPONDING LINGULAR AND LEFT BASILAR BRANCH ARTERIES. Carotid Doppler Study 05/19/19 00:00 IMPRESSION: NO HEMODYNAMICALLY SIGNIFICANT STENOSIS. Assessment & Plan - Diagnosis (1) Near syncope Is this a current diagnosis for this admission?: Yes (2) Physical debility Is this a current diagnosis for this admission?: Yes (3) Hyponatremia Is this a current diagnosis for this admission?: Yes (4) Hypotension Qualifiers: Hypotension type: unspecified hypotension type Qualified Code(s): I95.9 - Hypotension, unspecified Is this a current diagnosis for this admission?: Yes (5) Bacteremia due to Staphylococcus Is this a current diagnosis for this admission?: Yes Plan: Post IV Vancomycin therapy x 7 days. (6) Elevated lactic acid level Is this a current diagnosis for this admission?: Yes (7) Hilar mass Is this a current diagnosis for this admission?: Yes (8) HTN (hypertension) Qualifiers: Hypertension type: essential hypertension Qualified Code(s): I10 - Essential (primary) hypertension Is this a current diagnosis for this admission?: Yes (9) HLD (hyperlipidemia) Qualifiers: Hyperlipidemia type: unspecified Qualified Code(s): E78.5 - Hyperlipidemia, unspecified Is this a current diagnosis for this admission?: Yes (10) Schizophrenia Qualifiers: Schizophrenia type: unspecified Qualified Code(s): F20.9 - Schizophrenia, unspecified Is this a current diagnosis for this admission?: Yes (11) Depression Qualifiers: Depression Type: unspecified Qualified Code(s): F32.9 - Major depressive disorder, single episode, unspecified Is this a current diagnosis for this admission?: Yes - Time Time Spent with patient: 25-34 minutes Medications reviewed and adjusted accordingly: Yes Anticipated discharge: Home with Homehealth Within: Other - Inpatient Certification Based on my medical assessment, after consideration of the patient's oswaldo rbidities, presenting symptoms, or acuity I expect that the services needed warrant INPATIENT care.: Yes I certify that my determination is in accordance with my understanding of Medicare's requirements for reasonable and necessary INPATIENT services [42 CFR 412.3e].: Yes Medical Necessity: Significant Comorbidiites Make Outpatient Treatment Too Risky, Need Close Monitoring Due to Risk of Patient Decompensation, Need For Continuous Telemetry Monitoring, Risk of Complication if Not Cared For in Hospital, Risk of Diagnosis Which Will Require Inpatient Eval/Care/Monitoring Post Hospital Care: D/C Supervisor Cigarette Making Department Documentation - Plan Summary Plan Summary: Continue current medication management. Possible discharge tomorrow with WANT AD SUPERVISOR services.
[2019-05-27] MEDS: ATORVASTATIN CALCIUM 20 MG TABLET PO SCH (21:00)
[2019-05-27] MEDS: GABAPENTIN 400 MG CAPSULE PO SCH (21:01)
[2019-05-28] MEDS: BUSPIRONE HCL 10 MG TABLET PO SCH ×2 (05:12→13:43)
[2019-05-28] MEDS: PANTOPRAZOLE SODIUM 40 MG TABLET.DR PO SCH (05:12)
--- NOTE | 2019-05-28 08:16 | PDOC DISCHARGE SUMMARY ---
General - Admit/Disc Date/PCP Admission Date/Primary Care Provider: 05/18/19 19:21 HAZEL ROMAN MD Discharge Date: 05/28/19 - Discharge Diagnosis (1) Near syncope Is this a current diagnosis for this admission?: Yes Summary: No recurrent episode during hospitalization but demonstrated orthostatic hypotension with associated tachycardia that could have been the cause of his syncopal episode. (2) Physical debility Is this a current diagnosis for this admission?: Yes Summary: Patient continue to participate in physical therapy sessions and used front wheel walker for stability assistance. He will benefit from [facility] services including physical therapy upon discharge. (3) Hyponatremia Is this a current diagnosis for this admission?: Yes Summary: Resolved with IV fluid and Florinef therapy (4) Hypotension Is this a current diagnosis for this admission?: Yes Summary: Improved with addition of Midodrine to his medication management. (5) Bacteremia due to Staphylococcus Is this a current diagnosis for this admission?: Yes Summary: Adequately treated with IV Vancomycin for 7 days. Associated leukocytosis did resolved. (6) Elevated lactic acid level Is this a current diagnosis for this admission?: Yes Summary: Resolved with IV hydrationad treatment of possible infection. Blood culture one set grew staph. simulans sensitive to Vancomycin. (7) Hilar mass Is this a current diagnosis for this admission?: Yes Summary: This will need further evaluation on outpatient bases with repeat CT scan chest and possible lesion biopsy if it is persistent. (8) HTN (hypertension) Is this a current diagnosis for this admission?: Yes Summary: Maintain on current medication management. (9) HLD (hyperlipidemia) Is this a current diagnosis for this admission?: Yes Summary: Maintain on current medication management. (10) Schizophrenia Is this a current diagnosis for this admission?: Yes Summary: Maintain on current medication management. (11) Depression Is this a current diagnosis for this admission?: Yes Summary: Maintain on current medication management. - Additional Information Resuscitation Status: Full Code Discharge Diet: As Tolerated, Regular Discharge Activity: Activity As Tolerated, Slowly Increase Activity, Supervised Activity Prescriptions: Fludrocortisone Acetate [Florinef 0.1 mg Tablet] 0.05 mg PO DAILY #30 tablet Midodrine HCl [Proamatine 5 mg Tablet] 5 mg PO TID #90 tablet Home Medications: Aspirin [Aspirin 81 mg Chewable Tablet] 81 mg PO DAILY 07/23/12 Atenolol [Tenormin 25 mg Tablet] 12.5 mg PO DAILY 07/23/12 Citalopram Hydrobromide [Citalopram HBr] 40 mg PO DAILY 07/23/12 Atorvastatin Calcium [Lipitor 20 mg Tablet] 20 mg PO QHS 05/19/19 Buspirone HCl [Buspar 10 mg Tablet] 10 mg PO Q8 MDD 60 MG 05/19/19 Gabapentin [Neurontin 400 mg Capsule] 400 mg PO QHS 05/19/19 Risperidone [Risperdal] 3 mg PO Q12 05/19/19 Topiramate [Topamax 100 mg Tablet] 100 mg PO Q12 05/19/19 Fludrocortisone Acetate [Florinef 0.1 mg Tablet] 0.05 mg PO DAILY #30 tablet 05/28/19 Midodrine HCl [Proamatine 5 mg Tablet] 5 mg PO TID #90 tablet 05/28/19 History of Present Illness Patient complains of: Fall with loss of consciousness History of Present Illness: BESSIE STEPHENS is a 73 year old male patient of Dr. Roman who presented to the ED via EMS due to reported episode of fall while attending [employer] service in his attempt to stand up from sitting position. Spouse at bedside denied loss of consciousness or any seizure activity. She reported that patient had recurrent falls over the last few days, There is associated generalized weakness and dizziness. There is poor appetite and oral intake over last couple of days. Patient denied any fever, chills, nausea, vomiting, or abdominal pain. He denied any chest pain, palpitation or difficulty with breathing. His initial evaluation in the ED was remarkable for leukocytosis, elevated lactic acid level, hilar mas s and hyponatremia. His morbidities include hypertension, hyperlipidemia, and schizophrenia. He was advised hospitalization for further evaluation and management for possible sepsis, generalized weakness with recurrent falls, and hyponatremia with hilar mass Hospital Course Hospital Course: He was treated as a case of syncope and possible sepsis with hypotenstion, tachycardia and hyponatremia upon admission. his evaluation for hyponatremia was not supportive of SIADH. His hyponatremia may be due to his renal status as well as his medication. He demonstrated symptomatic orthostatic hypotenstion. Although his PM cortisol was within normal range, his AM cortisol level was not available at the time of his discharge. He was managed with Midodrine and Fl orinef therapy for his orthostatic hypotension with good response and ability to participate in physical therapy sessions. He will be discharged home on same therapy and further evaluation and adjustment will be done n outpatient bases. He will be discharged home today with TRUCK DISPATCHER services including visiting nurse, PT and HANDLE MAKER services. he will follow up with Dr. Roman as instructed upon discharge. Physical Exam Vital Signs: Temp Pulse Resp BP Pulse Ox 98.0 F 63 16 127/74 H 98 05/27/19 14:56 05/28/19 02:00 05/27/19 14:56 05/27/19 14:56 05/27/19 14:56 Intake & Output 05/27/19 05/28/19 05/29/19 06:59 06:59 06:59 Intake Total 975 2000 Output Total 1100 Balance -125 2000 Weight 102.7 kg 102.8 kg Physical Exam: General appearance: PRESENT: no acute distress, obese Head exam: PRESENT: atraumatic, normocephalic Eye exam: PRESENT: conjunctiva pink. ABSENT: pallor, scleral icterus Ear exam: PRESENT: normal external ear exam Mouth exam: PRESENT: moist Respiratory exam: PRESENT: clear to auscultation ward, decreased breath sounds - at lung bases Cardiovascular exam: PRESENT: RRR, +S1, +S2. ABSENT: diastolic murmur, rubs, systolic murmur GI/Abdominal exam: PRESENT: normal bowel sounds, soft. ABSENT: distended, guarding, mass, organomegaly, rebound, tenderness Extremities exam: ABSENT: pedal edema Neurological exam: PRESENT: alert, awake Psychiatric exam: PRESENT: appropriate affect, normal mood. ABSENT: homicidal ideation, suicidal ideation Skin exam: PRESENT: dry, warm Results Laboratory Results: 05/22/19 05:08 05/26/19 15:33 05/18/19 05/18/19 14:41 14:41 Creatine Kinase 36 L CK-MB (CK-2) 0.22 Troponin I < 0.012 NT-Pro-B Natriuret Pep 328 Impressions: Chest X-Ray 05/18/19 14:36 IMPRESSION: NO ACUTE FINDINGS. Head CT 05/18/19 14:38 IMPRESSION: NO ACUTE INTRACRANIAL FINDINGS. EVIDENCE OF ACUTE STROKE: NO. Chest/Abdomen CTA 05/18/19 15:19 IMPRESSION: NO PULMONARY EMBOLISM. IRREGULAR LEFT HILAR MASS MEASURING AT LEAST 4.3 CM, WHICH COURSES ALONG AND NARROWS THE INFERIOR MARGIN OF THE LEFT PULMONARY ARTERY, AND CORRESPONDING LINGULAR AND LEFT BASILAR BRANCH ARTERIES. Carotid Doppler Study 05/19/19 00:00 IMPRESSION: NO HEMODYNAMICALLY SIGNIFICANT STENOSIS. Qualifiers - * PATIENT BEING DISCHARGED WITH ANY OF THE FOLLOWING DIAGNOSIS: No Acute Heart Failure - Is this a Heart Failure Patient?: No Plan Discharge Plan: D/C home today with TRUCK DISPATCHER services and follow up with Dr. Roman as instructed upon discharge.
[2019-05-28] MEDS: MIDODRINE HCL 5 MG TABLET PO SCH ×2 (10:41→13:43)
[2019-05-28] MEDS: ATENOLOL 50 MG TABLET PO SCH (10:41)
[2019-05-28] MEDS: CITALOPRAM HYDROBROMIDE 20 MG TABLET PO SCH (10:41)
[2019-05-28] MEDS: RISPERIDONE 1 MG TABLET PO SCH (10:41)
[2019-05-28] MEDS: ASPIRIN 81 MG TABLET, CHEWABLE PO SCH (10:42)
[2019-05-28] MEDS: FLUDROCORTISONE ACETATE 0.1 MG TABLET PO SCH (10:48)
[2019-05-28] MEDS: TOPIRAMATE 100 MG TABLET PO SCH (10:48)
[2019-05-28] MEDS: ENOXAPARIN SODIUM INJ 40 MG/0.4 ML DISP.SYRIN SUBCUT SCH (10:49)
[2019-05-28 14:06] VITALS: BP 102/60
== END 2019-05-28 14:56 | disposition home health service (06) | DRG 312 ==
LOC: ER 14:16 → EH 19:21 → 3W 22:08
PROVIDERS: ADMIT Family Medicine; ATTEND Family Medicine
DX: I95.1 Orthostatic hypotension (principal); E87.1 Hypo-osmolality and hyponatremia; R78.81 Bacteremia; F20.9 Schizophrenia, unspecified; B95.8 Unspecified staphylococcus as the cause of diseases classified elsewhere; R63.0 Anorexia; R00.0 Tachycardia, unspecified; R53.81 Other malaise; I10 Essential (primary) hypertension; E78.5 Hyperlipidemia, unspecified; F32.9 Major depressive disorder, single episode, unspecified; R29.6 Repeated falls; R91.8 Other nonspecific abnormal finding of lung field; Z79.82 Long term (current) use of aspirin; Z88.8 Allergy status to other drugs, medicaments and biological substances; Z68.29 Body mass index [BMI] 29.0-29.9, adult
CPT/HCPCS: 36415; 70450; 71045; 71275; 80048; 80053; 80061; 80202; 80307; 81001; 82533; 82550; 82553; 82565; 82803; 83605; 83735; 83880; 83930; 83935; 84300; 84484; 85025; 85379; 85610; 87040; 87077; 87086; 87186; 93005; 93010; 93306; 93880; 96361; 96365; 99291; J0696; J1650; J3370; J3480; J3490; J7030; J7060